=== PATIENT | female | born 1965 | race African-American/Black ===

== ENCOUNTER 2019-03-13 15:24 | Inpatient (IN) | payer OTHER ==
[2019-03-13 16:55] VITALS: BMI 35.6
--- NOTE | 2019-03-13 19:14 | HP ---
CIWA Score Nausea/Vomitin Muscle Tremors: 4-Moderate,w/Arms Extend Anxiety: 3 Agitation: 1-Slight > Activity Paroxysmal Sweats: 3 Orientation: 0-Oriented Tacttile Disturbances: 0-None Auditory Disturbances: 0-None Visual Disturbances: 0-None Headache: 3-Moderate CIWA-Ar Total Score: 16 - Admission Criteria [facility]ASAS Guidelines: Admission for Medically Managed Detox: Requires at least one of the followin. CIWA greater than 12 2. Seizures within the past 24 hours 3. Delirium tremens within the past 24 hours 4. Hallucinations within the past 24 hours 5. Acute intervention needed for co occurring medical disorder 6. Acute intervention needed for co occurring psychiatric disorder 7. Severe withdrawal that cannot be handled at a lower level of care (continued vomiting, continued diarrhea, abnormal vital signs) requiring intravenous medication and/or fluids 8. Admission ROS [facility] - [facility] Chief Complaint: Alcohol withdrawal symptoms Allergies/Adverse Reactions: Allergies Allergy/AdvReac Type Severity Reaction Status Date / Time No Known Allergies Allergy Verified 03/13/19 16:38 History of Present Illness: 53 years old female with a long history of alcohol dependence is seeking admission to detox. Patient denies previous detox experience and reports insignificant period of sobriety. She has medical history of hypertension, hyperlipidemia, neuropathy, Diabetes type 2, and GERD. She denies psych. history , suicide attempt and suicidal ideation at this time. 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 Exam Limitations: No Limitations - Ebola screening Have you traveled outside of the country in the last 21 days: No Have you had contact with anyone from an Ebola affected area: No Do you have a fever: No - Review of Systems Constitutional: Chills, Malaise, Night Sweats, Changes in sleep EENT: reports: Nose Congestion Respiratory: reports: No Symptoms reported Cardiac: reports: No Symptoms Reported GI: reports: Nausea, Poor Appetite, Poor Fluid Intake, Abdominal cramping Musculoskeletal: reports: No Symptoms Reported Integumentary: reports: Dryness, Flushing Neuro: reports: Tremors Endocrine: reports: No Symptoms Reported Hematology: reports: No Symptoms Reported Psychiatric: reports: Mood/Affect Appropiate, Orientated x3 Other Systems: Reviewed and Negative Patient History - Patient Medical History Hx Anemia: No Hx Asthma: Yes (Not on medication) Hx Chronic Obstructive Pulmonary Disease (COPD): No Hx Cancer: No Hx Cardiac Disorders: No Hx Congestive Heart Failure: No Hx Hypertension: Yes (Lisinopril) Hx Hypercholesterolemia: Yes (Lipitor) Hx Pacemaker: No HX Cerebrovascular Accident: No Hx Seizures: No Hx Diabetes: Yes Hx Gastrointestinal Disorders: Yes (GERD -) Hx Liver Disease: No Hx Genitourinary Disorders: No Hx Sexually Transmitted Disorders: No Hx Renal Disease (ESRD): No Hx Thyroid Disease: No Hx Human Immunodeficiency Virus (HIV): No (Negative 2019) Hx Hepatitis C: No Hx Depression: No Hx Suicide Attempt: No (Denies suicide attempt/ suicidal ideation at this time) Hx Bipolar Disorder: No Hx Schizophrenia: No - Patient Surgical History Past Surgical History: Yes Hx Neurologic Surgery: No Hx Cataract Extraction: No Hx Cardiac Surgery: No Hx Lung Surgery: No Hx Breast Surgery: No Hx Breast Biopsy: No Hx Abdominal Surgery: No Hx Appendectomy: No Hx Cholecystectomy: No Hx Genitourinary Surgery: No Hx Section: Yes (2006) Hx Orthopedic Surgery: No Hx Hysterectomy: No Anesthesia Reaction: No - PPD History Previous Implant?: Yes Documented Results: Negative w/o proof Implanted On Prior [facility] Admission?: No PPD to be Administered?: Yes - Reproductive History Patient is a Female of Child Bearing Age (11 -55 yrs old): Yes LMP comment: Menopausal - Smoking Cessation Smoking history: Former smoker Have you smoked in the past 12 months: No Hx Chewing Tobacco Use: No Initiated information on smoking cessation: No - Substance & Tx. History Hx Alcohol Use: Yes Hx Substance Use: Yes Substance Use Type: Alcohol, Cocaine Hx Substance Use Treatment: Yes ([facility]) - Substances abused Alcohol Substance route: Oral Frequency: Daily Amount used: 2 pints vodka Age of first use: 12 Date of last use: 03/13/19 Crack Substance route: Inhalation Frequency: Daily Amount used: $500 Age of first use: 15 Date of last use: 03/12/19 Admission Physical Exam [facility] - Vital Signs Vital Signs: Vital Signs - 24 hr 03/13/19 03/13/19 16:37 17:15 Temperature 97.7 F 97.7 F Pulse Rate 105 H 105 H Respiratory 16 16 Rate Blood Pressure 144/98 144/98 - Physical General Appearance: Yes: Moderate Distress, Tremorous, Sweating, Anxious HEENTM: Yes: Within Normal Limits, Normal ENT Inspection, Normal Voice, NHAN Respiratory: Yes: Lungs Clear, Normal Breath Sounds, No Respiratory Distress Neck: Yes: Supple Breast: Yes: Breast Exam Deferred Cardiology: Yes: Tachycardia Abdominal: Yes: Normal Bowel Sounds Genitourinary: Yes: Within Normal Limits Back: Yes: Normal Inspection Musculoskeletal: Yes: Back pain, Muscle Pain Extremities: Yes: Tremors Neurological: Yes: Within Normal Limits, Alert, Normal Mood/Affect Integumentary: Yes: Warm Lymphatic: Yes: Within Normal Limits - Diagnostic (1) Alcohol dependence with withdrawal, uncomplicated Current Visit: Yes Status: Acute (2) Type 2 diabetes mellitus Current Visit: Yes Status: Chronic Qualifiers: Diabetes mellitus [employer] insulin use: unspecified [employer] insulin use status Diabetes mellitus complication status: with other specified complication Qualified Code(s): E11.69 - Type 2 diabetes mellitus with other specified complication (3) Hypertension Current Visit: Yes Status: Chronic Qualifiers: Hypertension type: essential hypertension Qualified Code(s): I10 - Essential (primary) hypertension (4) Hyperlipidemia Current Visit: Yes Status: Chronic Qualifiers: Hyperlipidemia type: unspecified Qualified Code(s): E78.5 - Hyperlipidemia , unspecified (5) GERD (gastroesophageal reflux disease) Current Visit: Yes Status: Chronic Qualifiers: Esophagitis presence: esophagitis presence not specified Qualified Code(s) : K21.9 - Gastro-esophageal reflux disease without esophagitis (6) Asthma Current Visit: Yes Status: Chronic (7) Neuropathy Current Visit: Yes Status: Chronic Cleared for Admission S - Detox or Rehab [facility] Level of Care: Medically Managed Detox Regimen/Protocol: Librium Claeared for Rehab Admission: No Breathalyzer - Breathalyzer Breathalyzer: 0 Urine Drug Screen - Test Device Lot number: [id number] Expiration date: 01/07/21 - Control Is test valid?: Yes - Results Drug screen NEGATIVE: No Urine drug screen results: [facility]-Cocaine Inpatient Rehab Admission - Rehab Decision to Admit Inpatient rehab admission?: No
[2019-03-13] MEDS ORDERED: MAG HYDROX/AL HYDROX/SIMETH 30 ML UNIT-DOSE CUP PO PRN (19:28)
[2019-03-13] MEDS ORDERED: MELATONIN 5 MG TABLETS PO PRN (19:28)
[2019-03-13] MEDS ORDERED: ACETAMINOPHEN 325 MG TABLET (FP) PO PRN ×2 (19:28)
[2019-03-13] MEDS ORDERED: MAGNESIUM HYDROX 2400MG/30ML ORAL SUSPENSION 30 ML CUP PO PRN (19:28)
[2019-03-13] MEDS ORDERED: chlordiazePOXIDE HCL 25 MG CAPSULE PO PRN (19:28)
[2019-03-13] MEDS ORDERED: MENTHOL/PHENOL 1 EACH UD MM PRN (19:28)
[2019-03-13] MEDS ORDERED: BISMUTH SUBSALICYLATE 262 MG/15 ML BTL PO PRN (19:28)
[2019-03-13] MEDS ORDERED: METHOCARBAMOL 500 MG TABLET PO PRN (19:28)
[2019-03-13] MEDS ORDERED: IBUPROFEN 400 MG TABLET (FP) PO PRN (19:28)
[2019-03-13] MEDS ORDERED: MAGNESIUM CITRATE 300 ML BOTTLE PO PRN (19:28)
[2019-03-13] MEDS: chlordiazePOXIDE HCL 25 MG CAPSULE PO SCH (22:20)
[2019-03-13] MEDS: FAMOTIDINE 20 MG TABLET PO SCH (22:21)
[2019-03-13] MEDS: GABAPENTIN 300 MG CAPSULE PO SCH (22:21)
[2019-03-13] MEDS: THIAMINE HCL 100 MG TABLET (FP) PO SCH (22:21)
[2019-03-13] MEDS ORDERED: INSULIN (NOVOLOG) ASPART 100 UNITS/ML 10ML VIAL SQ ONE (23:51)
[2019-03-13] MEDS ORDERED: INSULIN SLIDING SCALE (NOVOLOG) 1 VIAL SQ ONE (23:58)
[2019-03-14] MEDS: chlordiazePOXIDE HCL 25 MG CAPSULE PO SCH ×3 (06:55→19:13)
[2019-03-14] MEDS: GABAPENTIN 300 MG CAPSULE PO SCH ×3 (06:56→22:30)
[2019-03-14] MEDS ORDERED: ALBUTEROL SO4 0.083% IH SOL 2.5 MG/3 ML VIAL.NEB. NEB SCH (06:58)
[2019-03-14] MEDS ORDERED: ALBUTEROL SO4 2.5/IPRATROPIUM 0.5 INH SOL 3 ML VIAL.NEB. NEB ONE ×4 (07:24→19:23)
[2019-03-14] MEDS ORDERED: guaiFENesin 200 MG/10 ML 10 ML UNIT-DOSE CUPS PO PRN (07:31)
[2019-03-14] MEDS ORDERED: INSULIN (NOVOLOG) ASPART 100 UNITS/ML 10ML VIAL SQ SCH (07:42)
--- NOTE | 2019-03-14 09:34 | PN ---
S CIWA - CIWA Score Nausea/Vomitin-Mild Nausea/No Vomiting Muscle Tremors: 2 Anxiety: 3 Agitation: 2 Paroxysmal Sweats: 2 Orientation: 0-Oriented Tacttile Disturbances: 1-Very Mild Itch/Numbness Auditory Disturbances: 0-None Visual Disturbances: 1-Very Mild Sensitivity Headache: 2-Mild CIWA-Ar Total Score: 14 BHS Progress Note (SOAP) Subjective: 53 years old female admitted on 03/13/19 for alcohol withdrawal sx management treating with librium detox regiment long history of copd and obesity with current asthma exacerbated begin prednison 60mg and joie off to 5mg while in detox diabetes with insulin coverage reports taking novolog 25 units tid ac at home due to no concentrated sugar tight controlled diet and medically supervised hold 25 units for now continue bgm achs Objective: 03/14/19 09:37 Vital Signs Temperature 98.3 F 03/14/19 09:03 Pulse Rate 108 H 03/14/19 09:03 Respiratory Rate 20 03/14/19 09:03 Blood Pressure 126/86 03/14/19 09:03 O2 Sat by Pulse Oximetry (%) Laboratory Last Values POC Glucometer 266 UNITS (80-120) 03/14/19 07:03 03/14/19 09:38 lab pending Assessment: 03/14/19 09:39 alcohol withdrawal diabetes with insulin Plan: librium regiment
[2019-03-14] MEDS ORDERED: ATORVASTATIN CA 20 MG TABLET (FP) PO SCH (10:00)
[2019-03-14] MEDS ORDERED: LISINOPRIL 5 MG TABLET (FP) PO SCH (10:00)
[2019-03-14] MEDS ORDERED: predniSONE 20 MG TABLET (UD) PO ONE (10:00)
[2019-03-14] MEDS ORDERED: PRENATAL VITAMINS W/ FOLIC ACID TABLET (FP) PO SCH (10:00)
[2019-03-14] MEDS ORDERED: ASPIRIN 81 MG CHEWABLE TABLETS PO SCH (10:00)
[2019-03-14 10:12] LABS: HEMATOCRIT 43.7 % (32.4-45.2); HEMOGLOBIN 14.6 GM/dL (10.7-15.3); MCH 31.5 pg (25.7-33.7); MCHC 33.4 g/dl (32.0-36.0); MEAN CELL VOLUME 94.5 fl (80-96); MEAN PLT VOLUME 8.3 fl (7.5-11.1); PLATELET COUNT 275 K/MM3 (134-434); RBC 4.62 M/mm3 (3.60-5.2); RDW 14.7 % (11.6-15.6); WHITE BLOOD COUNT 9.6 K/mm3 (4.0-10.0)
[2019-03-14 10:19] LABS: ALBUMIN 3.3 g/dl (3.4-5.0); BILIRUBIN,TOTAL 0.2 mg/dL (0.2-1); BLOOD UREA NITROGEN 17.3 mg/dL (7-18); CALCIUM 8.9 mg/dL (8.5-10.1); CREATININE 0.8 mg/dL (0.55-1.3); POTASSIUM 4.4 mmol/L (3.5-5.1); TOT PROT 6.7 g/dl (6.4-8.2)
[2019-03-14] MEDS: FAMOTIDINE 20 MG TABLET PO SCH ×2 (10:25→22:00)
[2019-03-14] MEDS ORDERED: INSULIN SLIDING SCALE (NOVOLOG) 1 VIAL SQ ONE ×2 (11:42→18:00)
[2019-03-14] MEDS: INSULIN (NOVOLOG) ASPART 100 UNITS/ML 10ML VIAL SQ SCH ×3 (11:43→22:00)
--- NOTE | 2019-03-14 12:43 | EKG ---
Test Reason : Blood Pressure : / mmHG Vent. Rate : 094 BPM Atrial Rate : 094 BPM P-R Int : 122 ms QRS Dur : 078 ms QT Int : 384 ms P-R-T Axes : 063 042 046 degrees QTc Int : 480 ms NORMAL SINUS RHYTHM POSSIBLE LEFT ATRIAL ENLARGEMENT PROLONGED QT ABNORMAL ECG NO PREVIOUS ECGS AVAILABLE Confirmed by ROSALIND MIN, KENNETH ([id number]) on 03/14/2019 12:43:01 PM Referred By: CARRIE Confirmed By:KENNETH BOYER MD
[2019-03-14] MEDS: ALBUTEROL SO4 0.083% IH SOL 2.5 MG/3 ML VIAL.NEB. NEB SCH ×3 (15:56→20:07)
--- NOTE | 2019-03-14 17:02 | PN ---
[facility] Progress Note Note: nursing called for pt regarding FS 520 before dinner . P Insulin 14 units one time and recheck FS Vital Signs - 24 hr 03/13/19 03/13/19 03/14/19 17:15 22:04 00:30 Temperature 97.7 F 98.5 F Pulse Rate 105 H 100 H Respiratory 16 18 20 Rate Blood Pressure 144/98 149/100 03/14/19 03/14/19 03/14/19 03:30 05:00 09:03 Temperature 98.4 F 98.3 F Pulse Rate 98 H 108 H Respiratory 18 18 20 Rate Blood Pressure 148/79 126/86 03/14/19 12:43 Temperature 99.5 F Pulse Rate 100 H Respiratory 20 Rate Blood Pressure 104/63
--- NOTE | 2019-03-14 17:29 | PN ---
[facility] Progress Note Note: Called to evaluate pt for dyspnea, shortness of breath, wheezing. Pt states she has been feeling ill for a few days but her shortness of breath and wheezing has worsened. she states she has a hx of being intubated in the past. On exam, pt is short of breath, wheezing. O2 Sat : 90%, HR 101 Lungs: decreased lung sounds b/l, wheezes and crackles throughout Cardiac: +S1S2 no mrg, tachycardic Extremities: no edema x 1 ventolin, 1 duonebs Will send to [facility] ED for further evaluation/ mgmt . sign out given to Dr. Hutchins
[2019-03-14] MEDS ORDERED: INSULIN (NOVOLOG) ASPART 100 UNITS/ML 10ML VIAL SQ ONE (17:30)
--- NOTE | 2019-03-14 18:13 | PN ---
[facility] Progress Note Note: 53 y.o. female pt w/ asthma/ copd reports SOB , intubated x 4 in the past , minimal relief w/ nebul;izer tx . PMHX : hypertension, hyperlipidemia, neuropathy, Diabetes type 2, and GERD. Vital Signs - 24 hr 03/13/19 03/14/19 03/14/19 22:04 00:30 03:30 Temperature 98.5 F Pulse Rate 100 H Respiratory 18 20 18 Rate Blood Pressure 149/100 03/14/19 03/14/19 03/14/19 05:00 09:03 12:43 Temperature 98.4 F 98.3 F 99.5 F Pulse Rate 98 H 108 H 100 H Respiratory 18 20 20 Rate Blood Pressure 148/79 126/86 104/63 Resp : moderate distress , accessory mm use , +wheezing , decreased BS , + crackles . CV : S1 S2 + tachycardia O2 sat -difficult to obtain 2/2 artificial nails . P : pt sent to [facility] ED via EMS for further eval and tx .
[2019-03-14 18:47] VITALS: BP 138/97; PULSE 102; TEMP 98.8
[2019-03-14] MEDS: THIAMINE HCL 100 MG TABLET (FP) PO SCH (22:00)
[2019-03-14] MEDS ORDERED: chlordiazePOXIDE 5 MG CAPSULE PO SCH (23:00)
[2019-03-15] MEDS ORDERED: chlordiazePOXIDE HCL 25 MG CAPSULE PO SCH (05:00)
[2019-03-15] MEDS ORDERED: predniSONE 20 MG TABLET (UD) PO ONE (10:00)
[2019-03-15] MEDS ORDERED: chlordiazePOXIDE HCL 10 MG CAPSULE PO SCH (23:00)
[2019-03-16] MEDS ORDERED: chlordiazePOXIDE HCL 10 MG CAPSULE PO SCH (05:00)
[2019-03-16] MEDS ORDERED: predniSONE 20 MG TABLET (UD) PO ONE (10:00)
[2019-03-17] MEDS ORDERED: chlordiazePOXIDE HCL 10 MG CAPSULE PO SCH ×2 (05:00)
[2019-03-17] MEDS ORDERED: predniSONE 5 MG TABLET (UD) PO ONE (10:00)
[2019-03-18] MEDS ORDERED: chlordiazePOXIDE HCL 10 MG CAPSULE PO ONE ×2 (05:00)
== END 2019-03-14 23:55 | disposition short-term general hospital (02) | DRG 897 ==
LOC: YASAS 15:24 → Y3N 20:22
PROVIDERS: ADMIT Allergy & Immunology; ATTEND Allergy & Immunology
PROC: HZ2ZZZZ Detoxification Services for Substance Abuse Treatment (ICD-10-PCS; principal; 2019-03-13)
DX: F10.230 Alcohol dependence with withdrawal, uncomplicated (principal); I10 Essential (primary) hypertension; E78.5 Hyperlipidemia, unspecified; E11.9 Type 2 diabetes mellitus without complications; G62.9 Polyneuropathy, unspecified; J44.9 Chronic obstructive pulmonary disease, unspecified; R00.0 Tachycardia, unspecified; R06.02 Shortness of breath; R06.2 Wheezing; R06.00 Dyspnea, unspecified; Z87.891 Personal history of nicotine dependence; Z79.4 Long term (current) use of insulin
CPT/HCPCS: 36415; 80053; 82962; 85027; 86593; 87389; 93005; 93010; 94640

== ENCOUNTER 2019-03-14 18:16 | Inpatient (IN) | payer OTHER ==
[2019-03-14] MEDS ORDERED: ALBUTEROL SO4 2.5/IPRATROPIUM 0.5 INH SOL 3 ML VIAL.NEB. NEB ONE ×3 (18:44→21:09)
[2019-03-14] MEDS ORDERED: SODIUM CHLORIDE 1,000 ML IV STA (18:44)
[2019-03-14] MEDS ORDERED: methylPREDNISolone NA SUCC 125 MG/2 ML VIAL IVPB ONE (18:44)
[2019-03-14] MEDS ORDERED: methylPREDNISolone NA SUCC 125 MG/2 ML VIAL ONE (19:07)
[2019-03-14] MEDS ORDERED: MAGNESIUM 1GM/D5W - 1 GM/100 ML IVPB IVPB ONE ×2 (19:31→20:37)
--- NOTE | 2019-03-14 19:34 | PDOC ---
History of Present Illness - General Chief Complaint: Asthma Stated Complaint: DIFFICULT BREATHING Time Seen by Provider: 03/14/19 18:40 History Source: Patient Exam Limitations: No Limitations - History of Present Illness Initial Comments: Stacie De Leon is a 53 yo F w a hx of COPD, asthma, polysubstance abuse, HTN, NIDDM, GERD and HCL who presents from [facility] with respiratory distress stating she is having both an asthma exacerbation and a COPD problem. She describes recent URI symptoms which have subsided but the patient now is in respiratory distress after her illness. She states she has been intubated multiple times in the past for her asthma and has needed many ICU admissions for her asthma. She states her breathing is awful today but nowhere near as bad as it was when she needed intubation or ICU admissions. Patient denies chest pain, PCP: None LMP: Menopausal PSH: Social Hx: Uses crack, alcohol, cocaine, tobacco Allergies: NKA, NKDA Past History - Past Medical History Allergies/Adverse Reactions: Allergies Allergy/AdvReac Type Severity Reaction Status Date / Time No Known Allergies Allergy Verified 03/13/19 16:38 Home Medications: Ambulatory Orders Albuterol Sulfate Inhaler - [Ventolin HFA Inhaler -] 2 inhaler PO PRN PRN Aspirin 81 mg PO DAILY 03/13/19 Atorvastatin Calcium [Lipitor] 20 mg PO DAILY 03/13/19 Cyclobenzaprine HCl [Flexeril 10 mg] 5 mg PO DAILY 03/13/19 Famotidine [Pepcid -] 20 mg PO BID 03/13/19 Gabapentin [Neurontin] 600 mg PO TID 03/13/19 Insulin Sliding Scale [Novolog Vial Sliding Scale -] 25 units SQ TID 03/13/19 Lisinopril 5 mg PO DAILY 03/13/19 Anemia: No Asthma: Yes (Not on medication) Cancer: No Cardiac Disorders: No CVA: No COPD: No CHF: No Diabetes: Yes GI Disorders: Yes (GERD -) Disorders: No HTN: Yes (Lisinopril) Hypercholesterolemia: Yes (Lipitor) Liver Disease: No Seizures: No Thyroid Disease: No - Surgical History Abdominal Surgery: No Appendectomy: No Cardiac Surgery: No Cholecystectomy: No Lung Surgery: No Neurologic Surgery: No Orthopedic Surgery: No - Reproductive History PID: No - Psycho Social/Smoking Cessation Hx Smoking History: Former smoker Have you smoked in the past 12 months: Yes Information on smoking cessation initiated: No Hx Alcohol Use: Yes Drug/Substance Use Hx: Yes Substance Use Type: Alcohol, Cocaine Hx Substance Use Treatment: Yes ([facility]) Review of Systems - Review of Systems Able to Perform ROS?: Yes Comments:: CONSTITUTIONAL: Present: Fevers, chills Absent: no fatigue EYES: Absent: visual changes ENT: Absent: ear pain, no sore throat CARDIOVASCULAR: Absent: chest jeaneth Present: cough, SOB GI: Absent: abdominal pain, no nausea, no vomiting, no constipation, no diarrhea GENITOURINARY: Absent: dysuria, no frequency, no hematuria MUSKULOSKELETAL: Absent: back pain, no arthralgia, no myalgia SKIN: Absent: rash NEURO: Absent: headache *Physical Exam - Vital Signs Last Vital Signs Temp Pulse Resp BP Pulse Ox 98.0 F 108 H 20 137/78 98 03/14/19 18:40 03/14/19 18:40 03/14/19 18:40 03/14/19 18:40 03/14/19 18:40 - Physical Exam GENERAL: Patient looks uncomfortable. Moderate distress. HEENT: Normocephalic, atraumatic. PERRL, EOM intact. CARDIOVASCULAR: Normal S1, S2. Regular rate and rhythm. PULMONARY: There are bilateral diffuse expiratory wheezes. Right sided crackles. ABDOMEN: Soft, non-distended, non-tender. EXTREMITIES: Normal ROM in all four extremities. No gross deformities. SKIN: Warm, dry. No rash NEUROLOGICAL: No focal neurological deficits. Procedures - Bedside Ultrasound Other: IV access Remarks: Nurses failed 8 IV attempts. I placed an US guided 20 gauge IV in the left bicep ED Treatment Course - LABORATORY CBC & Chemistry Diagram: 03/14/19 21:00 03/14/19 21:07 - ADDITIONAL ORDERS Additional order review: Laboratory Results 03/14/19 18:32 POC Glucometer 462 03/14/19 18:32 POC Glucometer 462 - RADIOLOGY Radiology Studies Ordered: Category Date Time Status CHEST X-RAY PORTABLE* [RAD] Stat Radiology 03/14/19 18:45 Taken - Medications Given in the ED: ED Medications Discontinued Medications Generic Name Dose Route Start Last Admin Trade Name Freq PRN Reason Stop Dose Admin Albuterol/Ipratropium 3 amp 03/14/19 18:44 03/14/19 19:12 Duoneb - NEB 03/14/19 18:45 3 amp ONCE ONE Administration Methylprednisolone Sodium Succinate 125 mg 03/14/19 18:44 03/14/19 19:13 Solu-Medrol - IVPB 03/14/19 18:45 125 mg ONCE ONE Administration Medical Decision Making - Medical Decision Making Stacie De Leon is a 53 yo F w a hx of COPD, asthma, polysubstance abuse, HTN, NIDDM, GERD and HCL who presents from [facility] with respiratory distress stating she is having both an asthma exacerbation and a COPD problem. She describes recent URI symptoms which have subsided but the patient now is in respiratory distress after her illness. She states she has been intubated multiple times in the past for her asthma and has needed many ICU admissions for her asthma. She states her breathing is awful today but nowhere near as bad as it was when she needed intubation or ICU admissions. Vital Signs Temp Pulse Resp BP Pulse Ox 98.0 F 108 H 20 137/78 98 03/14/19 18:40 03/14/19 18:40 03/14/19 18:40 03/14/19 18:40 03/14/19 19:46 DDx IBNLT: Sepsis, copd, heart failure, Asthma, PNA Plan: Labs, Bipap, Abx, likely admit for respiratory failure EKG: NSR, QTc less than 500 CXR: possible right sided infiltrate - Covering with Abx ABG: Suggests patient is having a COPD exacerbation - Patient is now stable and doing much better on Bi-Pap - Will cover for PNA and admit to med/surg 20 Gauge IV placed by in in left bicep with US guidance Dispo: Med/Surg Discharge - Discharge Information Problems reviewed: Yes Clinical Impression/Diagnosis: Respiratory distress, COPD exacerbation Condition: Stable - Admission Yes - Follow up/Referral - Patient Discharge Instructions - Post Discharge Activity
[2019-03-14] MEDS ORDERED: MAGNESIUM SULF 50% (8.12 MEQ/2 ML-1 GM VIAL) IVPB ONE ×2 (19:36→20:00)
[2019-03-14] MEDS ORDERED: CEFTRIAXONE 1,000 MG in DEXTROSE 5%-WATER - 50 ML IVPB ONE (19:51)
[2019-03-14] MEDS ORDERED: AZITHROMYCIN IVPB 500 MG in DEXTROSE 5%-WATER - 250 ML IVPB ONE (19:52)
--- NOTE | 2019-03-14 20:22 | PDOC ---
Attending Attestation - Resident Resident Name: Milton Fowler - ED Attending Attestation I have performed the following: I have examined & evaluated the patient, The case was reviewed & discussed with the resident, I agree w/resident's findings & plan, Exceptions are as noted - HPI HPI: 03/14/19 20:21 53 F with h/o COPD/asthma, PSA, HTN, DM, GERD, presenting from [facility] with SOB. Pt states that she has had a URI recently that triggered a COPD flare. Pt was being treated with nebs at [facility], with no improvement. Pt denies any F/ C. Denies leg swelling. Has had multiple prior intubations in the past for COPD. - Physicial Exam PE: 03/14/19 20:22 "GENERAL: Awake, alert, and fully oriented, in no acute distress. HEAD: No signs of trauma EYES: PERRLA, EOMI, sclera anicteric, conjunctiva clear ENT: Auricles normal inspection, hearing grossly normal, nares patent, oropharynx clear without exudates. Moist mucosa NECK: Nontender, no stepoffs, Normal ROM, supple, no lymphadenopathy, JVD, or masses LUNGS: + diffuse wheezes HEART: Regular rate and rhythm, normal S1 and S2, no murmurs, rubs or gallops ABDOMEN: Soft, nontender, normoactive bowel sounds. No guarding, no rebound. No masses EXTREMITIES: Normal range of motion, no edema. No clubbing or cyanosis. No cords, erythema, or tenderness NEUROLOGICAL: Cranial nerves II through XII intact. 5/5 strength and sensation in all extremities, Normal speech, normal gait, normal cerebellar function SKIN: Warm, Dry, normal turgor, no rashes or lesions noted. - Critical Care Time Total Critical Care Time: 60 Critical Care Statement: The care of this patient involved high complexity decision making to prevent further life threatening deterioration of the patient 's condition and/or to evaluate & treat vital organ system(s) failure or risk of failure. - Medical Decision Making 03/14/19 20:22 53 F with COPD exacerbation. - Labs - CXR - Nebs, steroids, Mg - BiPAP PRN
[2019-03-14] MEDS ORDERED: AZITHROMYCIN IVPB 500 MG/250 ML BAG IVPB ONE (20:37)
[2019-03-14] MEDS ORDERED: CEFTRIAXONE 1 GM/50 ML BAG ONE (20:37)
[2019-03-14 20:41] LABS: ARTERIAL BLD GAS O2 SATURATION 95.7 % (95-98); ARTERIAL BLOOD GAS PCO2 64.2 mmHg (35-45); ARTERIAL BLOOD GAS PO2 90.4 mmHg (80-100); ARTERIAL BLOOD GAS pH 7.27 (7.35-7.45)
[2019-03-14 20:42] LABS: ARTERIAL BLOOD GAS BASE EXCESS 1.2 meq/l (-2-2); CARBOXYHEMOGLOBIN 1.4 % (0-2)
[2019-03-14 21:59] LABS: ALBUMIN 3.3 g/dl (3.4-5.0); ALK PHOS 113 U/L (45-117); ANION GAP 9 MMOL/L (8-16); BILIRUBIN,TOTAL 0.1 mg/dL (0.2-1); BLOOD UREA NITROGEN 23.6 mg/dL (7-18); CHLORIDE 96 mmol/L (98-107); CO2 28 mmol/L (21-32); CREATININE 1.2 mg/dL (0.55-1.3); POTASSIUM 4.3 mmol/L (3.5-5.1); SGOT/AST 11 U/L (15-37); SGPT/ALT 18 U/L (13-61); SODIUM 132 mmol/L (136-145); TOT PROT 6.9 g/dl (6.4-8.2)
[2019-03-14 22:09] LABS: BASO % 0.5 % (0-2.0); EOS % 0.3 % (0-4.5); HEMOGLOBIN 14.4 GM/dL (10.7-15.3); LYMPH % 4.9 % (8-40); MCH 31.6 pg (25.7-33.7); MCHC 33.4 g/dl (32.0-36.0); MEAN CELL VOLUME 94.7 fl (80-96); MEAN PLT VOLUME 8.3 fl (7.5-11.1); MONO % 0.5 % (3.8-10.2); NEUT % 93.8 % (42.8-82.8); PLATELET COUNT 254 K/MM3 (134-434); RBC 4.55 M/mm3 (3.60-5.2); RDW 14.6 % (11.6-15.6); WHITE BLOOD COUNT 9.5 K/mm3 (4.0-10.0)
[2019-03-14 22:09] LABS: GLUCOSE,RANDOM 494 mg/dL (74-106)
[2019-03-14 22:31] LABS: PLATELET ESTIMATE ADEQUATE
--- NOTE | 2019-03-14 22:48 | PN ---
Teaching Attending Note Name of Resident: Abdoul Arango ATTENDING PHYSICIAN STATEMENT I saw and evaluated the patient. I reviewed the resident's note and discussed the case with the resident. I agree with the resident's findings and plan as documented. SUBJECTIVE: Patient is a 53 year old woman with a PMH of COPD, Asthma, Polysubstance abuse ( crack, alcohol, cocaine), Tobacco use, HTN, NIDDM, GERD and HCL who presents from [facility] with respiratory distress stating she is having both an asthma exacerbation and a COPD problem. She describes recent URI symptoms which have subsided but the patient now is in respiratory distress after her illness. She states she has been intubated multiple times in the past for her asthma and has needed many ICU admissions for her asthma. She states her breathing is awful today but nowhere near as bad as it was when she needed intubation or ICU admissions. Patient was being treated with nebulizers at [facility], with no improvement. She denies fever, chills, nausea, vomiting, headache, abdominal pain, dysuria, frequency or diarrhea. Has vaginal itching. She is menopausal. Denies recent travels. OBJECTIVE: Alert Vital Signs Period Temp Pulse Resp BP Sys/Singh Pulse Ox Last 24 Hr 98.0 F 108 20 137/78 98-98 HEENT: No Jaundice, eye redness or discharge, PERRLA, EOMI. Normocephalic, atraumatic. External ears are normal and hearing is grossly intact. No nasal discharge. Neck: Supple, nontender. No palpable adenopathy or thyromegaly. No JVD Chest: Good effort. Wheezing. Clear to percussion. Heart: Regular. No S3, rub or murmur Abdomen: Not distended, soft, nontender and no HSM. No rebound or guarding. Normal bowel sounds. Ext: Peripheral pulses intact. No leg edema. Skin: Warm and dry. No petechiae, rash or ecchymosis. Neuro: Alert. Oriented x3. CN 2-12 grossly intact. Sensation grossly intact in all four extremities and DTR are symmetric. Psych: Appropriate mood and affect. Good insight. Home Medications Medication Instructions Recorded Albuterol Sulfate Inhaler - 2 inhaler PO PRN PRN 03/13/19 [Ventolin HFA Inhaler -] Aspirin 81 mg PO DAILY 03/13/19 Atorvastatin Calcium [Lipitor] 20 mg PO DAILY 03/13/19 Cyclobenzaprine HCl [Flexeril 10 5 mg PO DAILY 03/13/19 mg] Famotidine [Pepcid -] 20 mg PO BID 03/13/19 Gabapentin [Neurontin] 600 mg PO TID 03/13/19 Insulin Sliding Scale [Novolog 25 units SQ TID 03/13/19 Vial Sliding Scale -] Lisinopril 5 mg PO DAILY 03/13/19 Abnormal Lab Results 03/14/19 03/14/19 03/14/19 20:00 21:00 21:07 Absolute Neuts (auto) 8.9 H Neutrophils % 93.8 H Neutrophils % (Manual) 91.0 H Lymphocytes % 4.9 L Lymphocytes % (Manual) 5.0 L Monocytes % 0.5 L Monocytes % (Manual) 2 L ABG pH 7.27 L ABG pCO2 at Pt Temp 64.2 H ABG HCO3 29.1 H Sodium 132 L Chloride 96 L BUN 23.6 H Random Glucose 494 H* Total Bilirubin 0.1 L AST 11 L Albumin 3.3 L ASSESSMENT AND PLAN: 1. COPD exacerbation/Hypercapnic respiratory failure - Likely precipitated by recent URI and/or continued tobacco use and inhalation of illicit drugs. ABG in the ER showed respiratory acidosis/CO2 retention and she was placed on BiPAP. CXR shows RLL infiltrate, cardiomegaly, ?increased interstitial markings/ pulmonary vascular congestion. Flu swab is negative and UA is pending. In the ER she got Duonebs, Solumedrol, MgSO4, IV Azithromycin, Rocephin and IV NS - will continue same but replace Azithromycin with Doxycycline in view of prolonged QTc, and add symbicort. EKG shows sinus tachycardia at 108/minute, prolonged QTc and no significant ST-T wave changes. Will treat vaginal itching with miconazole cream. Monitor closely on BiPAP and intubate if she fails to improve. Get ECHO and consult Pulmonary. Will continue comprehensive care for all of patients comorbid conditions. 2. Hypoalbuminemia - Possibly due to combined effects of malnutrition and inflammation associated with comorbid chronic conditions. Will ensure adequate dietary protein intake and also consult account liaison. Urinalysis pending 3. Uncontrolled DM There is no evidence of DKA. Will give IV Regular insulin 5 units stat and continue IV NS and monitor and replce K+. Will hold the home diabetes drugs and implement sliding scale insulin regimen. Provide comprehensive diabetes care with patient teaching and counseling about the importance of adherence to prescribed diabetes regimen, euglycemia, eye care and foot care. 4. Tobacco Use Counseled on risks associated with tobacco use. We will provide patient all the necessary assistance to facilitate smoking cessation and prescribe Nicotine patch. 5. Obesity Counseled on the risks associated with obesity. Will provide patient all the necessary assistance, counseling and positive reinforcement to facilitate weight loss. Consult account liaison. 6. Illicit drug/Alcohol abuse - Will monitor closely for drug withdrawal. Implement [facility] alcohol withdrawal protocol and do neurochecks. Implement seizure, fall and aspiration precautions. Treat with thiamine and folic acid and monitor electrolytes (Ca,Mg,K,P). Counseled patient about abstaining from illicit drugs and alcohol. Will consult management specialist and refer to drug/alcohol detox upon discharge. 7. Hypertension - Restart suitable outpatient antihypertensive drugs when clinically appropriate. Revise regimen to ensure [id number] excellent BP control and director counseling bureau patient on the injurious effects of uncontrolled hypertension. Nonpharmacologic measures to control hypertension like weight loss , salt restriction and exercise discussed. Importance of adherence to treatment regimen and attainment of normotension emphasized. 8. DVT prophylaxis - Lovenox 40 mg SQ q 24 hours. 9. Advance directives - Full code
[2019-03-14] MEDS ORDERED: HEPARIN NA (PORCINE) 5,000 UNITS/ML 1ML VIAL SQ SCH (23:45)
[2019-03-14] MEDS ORDERED: ALBUTEROL SO4 0.083% IH SOL 2.5 MG/3 ML VIAL.NEB. NEB PRN (23:49)
--- NOTE | 2019-03-14 23:56 | HP ---
CHIEF COMPLAINT: shortness of breath PCP: none HISTORY OF PRESENT ILLNESS: Stacie De Leon is a 53 year old female with a past medical history of COPD, asthma , DM, GERD, HTN, HLD, neuropathy, polysubstance use of alcohol and cocaine, who presents from [facility] due to shortness of breath. The patient stated that she had been having a cough productive of green sputum for the last several days and endorsed wheezing and shortness of breath. She endorsed having some chest pain associated with a cough and present only when she coughs. Otherwise denied fever, chills, lightheadedness, dizziness, abdominal pain, dysuria, hematuria, frequency, urgency, hesitancy. She endorsed some vulvovaginal itching that she states she gets when she is given steroids. Also endorsed nausea. Denied sick contacts and recent travel. Of note, patient stated that she has a history of asthma and COPD exacerbations for which she has required intubation and ICU intubation in the past. ER course was notable for: (1) HR 108, 98% on BiPAP FIO2 40% (2) WBC 9.5 with left shift, Na 132 corrected 138, BUN 23.6, CRE 1.2 (last 0.8 1 day prior), GLU 494, Alb 3.3 (3) WBG 7.27, CO2 64.2, HCO3 29.1, O2 sat 95.1 Recent Travel: denies PAST MEDICAL HISTORY: as above PAST SURGICAL HISTORY: Social History: Smoking: former smoker quit 3 months prior, formerly smoked "alot" Alcohol: last drink 2 days prior, 2 pints of vodka daily for 1 week after period of abstinence Drugs: daily crack use for 1 week after long period of abstinence, smoking, denies IVDU Lives with her children. 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 Allergies No Known Allergies Allergy (Verified 03/13/19 16:38) HOME MEDICATIONS: Home Medications Medication Instructions Recorded Albuterol Sulfate Inhaler - 2 inhaler PO PRN PRN 03/13/19 [Ventolin HFA Inhaler -] Aspirin 81 mg PO DAILY 03/13/19 Atorvastatin Calcium [Lipitor] 20 mg PO DAILY 03/13/19 Cyclobenzaprine HCl [Flexeril 10 5 mg PO DAILY 03/13/19 mg] Famotidine [Pepcid -] 20 mg PO BID 03/13/19 Gabapentin [Neurontin] 600 mg PO TID 03/13/19 Insulin Sliding Scale [Novolog 25 units SQ TID 03/13/19 Vial Sliding Scale -] Lisinopril 5 mg PO DAILY 03/13/19 REVIEW OF SYSTEMS CONSTITUTIONAL: Absent: fever, chills, diaphoresis, generalized weakness, malaise, loss of appetite, weight change HEENT: nasal congestion Absent: rhinorrhea, throat pain, throat swelling, difficulty swallowing, visual changes CARDIOVASCULAR: Absent: syncope, palpitations, irregular heart rate, lightheadedness, peripheral edema RESPIRATORY: cough, shortness of breath, dyspnea with exertion, wheezing Absent: orthopnea, stridor, hemoptysis GASTROINTESTINAL: nausea Absent: abdominal pain, abdominal distension, vomiting, diarrhea, constipation, melena, hematochezia GENITOURINARY: genital pruritis Absent: dysuria, frequency, urgency, hesitancy, hematuria, flank pain MUSCULOSKELETAL: Absent: myalgia, arthralgia, joint swelling, back pain, neck pain SKIN: Absent: rash, itching, pallor HEMATOLOGIC/IMMUNOLOGIC: Absent: easy bleeding, easy bruising, lymphadenopathy, frequent infections ENDOCRINE: Absent: unexplained weight gain, unexplained weight loss, heat intolerance, cold intolerance NEUROLOGIC: Absent: headache, focal weakness or paresthesias, dizziness, unsteady gait, seizure, mental status changes PSYCHIATRIC: Absent: anxiety, depression, suicidal or homicidal ideation, hallucinations. PHYSICAL EXAMINATION Vital Signs - 24 hr 03/14/19 03/14/19 03/14/19 18:40 19:46 19:50 Temperature 98.0 F Pulse Rate 108 H Respiratory 20 Rate Blood Pressure 137/78 O2 Sat by Pulse 98 98 98 Oximetry (%) 03/14/19 22:38 Temperature Pulse Rate Respiratory Rate Blood Pressure O2 Sat by Pulse 98 Oximetry (%) GENERAL: Awake, alert, and fully oriented, in mild acute distress. Obese. HEAD: Normal with no signs of trauma. EYES: Pupils equal, round and reactive to light, extraocular movements intact, sclera anicteric, conjunctiva clear. EARS, NOSE, THROAT: Oropharynx clear without exudates. Moist mucous membranes. NECK: Normal range of motion, supple without lymphadenopathy, JVD, or masses. LUNGS: Diffuse expiratory wheezes mainly heard in the upper lobes, decreased breath sounds in the lower lobes, mild bibasilar crackles. Using accessory muscles to breath. HEART: Tachycardic rate and regualar rhythm, normal S1 and S2 without murmur, rub. ABDOMEN: Soft, nontender, not distended, normoactive bowel sounds, no guarding, no rebound, no masses. GENITAL: Exam performed with nurse post closing specialist, no discharge, no blood, no lesions , no ulcerations, no rashes. MUSCULOSKELETAL: Normal range of motion at all joints. No bony deformities or tenderness. UPPER EXTREMITIES: 2+ pulses, warm, well-perfused. No cyanosis. No clubbing. No peripheral edema. LOWER EXTREMITIES: 2+ pulses, warm, well-perfused. No calf tenderness. No peripheral edema. NEUROLOGICAL: Cranial nerves II-XII intact. 5/5 muscle strength bilaterally upper and lower extremities. PSYCHIATRIC: Cooperative. Good eye contact. Appropriate mood and affect. SKIN: Warm, dry, normal turgor, no rashes or lesions noted, normal capillary refill. Laboratory Results - last 24 hr 03/14/19 03/14/19 03/14/19 18:32 20:00 21:00 WBC 9.5 RBC 4.55 Hgb 14.4 Hct 43.0 MCV 94.7 MCH 31.6 MCHC 33.4 RDW 14.6 Plt Count 254 MPV 8.3 Absolute Neuts (auto) 8.9 H Total Counted 100 Neutrophils % 93.8 H Neutrophils % (Manual) 91.0 H Lymphocytes % 4.9 L Lymphocytes % (Manual) 5.0 L Monocytes % 0.5 L Monocytes % (Manual) 2 L Eosinophils % 0.3 Eosinophils % (Manual) 2.0 Basophils % 0.5 Nucleated RBC % 0 Platelet Estimate Adequate Platelet Comment No clumping noted Anticoagulation Therapy No Result Required. Puncture Site No Result Required. ABG pH 7.27 L ABG pCO2 at Pt Temp 64.2 H ABG pO2 at Pt Temp 90.4 ABG HCO3 29.1 H ABG O2 Sat (Measured) 95.7 ABG O2 Content 18.2 ABG Base Excess 1.2 Roger Test No Result Required. Carboxyhemoglobin 1.4 Methemoglobin 1.0 O2 Delivery Device No Result Required. Oxygen Flow Rate No Result Required. Vent Mode No Result Required. Vent Rate No Result Required. Mechanical Rate No Result Required. Pressure Support Vent No Result Required. Sodium Potassium Chloride Carbon Dioxide Anion Gap BUN Creatinine Est GFR (CKD-EPI)AfAm Est GFR (CKD-EPI)NonAf POC Glucometer 462 Random Glucose Calcium Total Bilirubin AST ALT Alkaline Phosphatase Troponin I Total Protein Albumin Influenza A (Rapid) Influenza B (Rapid) 03/14/19 03/14/19 21:07 21:07 WBC RBC Hgb Hct MCV MCH MCHC RDW Plt Count MPV Absolute Neuts (auto) Total Counted Neutrophils % Neutrophils % (Manual) Lymphocytes % Lymphocytes % (Manual) Monocytes % Monocytes % (Manual) Eosinophils % Eosinophils % (Manual) Basophils % Nucleated RBC % Platelet Estimate Platelet Comment Anticoagulation Therapy Puncture Site ABG pH ABG pCO2 at Pt Temp ABG pO2 at Pt Temp ABG HCO3 ABG O2 Sat (Measured) ABG O2 Content ABG Base Excess Roger Test Carboxyhemoglobin Methemoglobin O2 Delivery Device Oxygen Flow Rate Vent Mode Vent Rate Mechanical Rate Pressure Support Vent Sodium 132 L Potassium 4.3 Chloride 96 L Carbon Dioxide 28 Anion Gap 9 BUN 23.6 H Creatinine 1.2 Est GFR (CKD-EPI)AfAm 59.75 Est GFR (CKD-EPI)NonAf 51.55 POC Glucometer Random Glucose 494 H* Calcium 9.0 Total Bilirubin 0.1 L AST 11 L ALT 18 Alkaline Phosphatase 113 Troponin I < 0.02 Total Protein 6.9 Albumin 3.3 L Influenza A (Rapid) Negative Influenza B (Rapid) Negative EKG--> Sinus tachycardia at 108, no ST segment changes, QTc 493 ASSESSMENT/PLAN: Stacie De Leon is a 53 year old female with a past medical history of COPD, asthma , DM, GERD, HTN, HLD, neuropathy, polysubstance use of alcohol and cocaine admitted for COPD exacerbation in the setting of likely pneumonia. Acute Hypercapneic Respiratory Failure due COPD Exacerbation - likely in setting of PNA - ABG as above - continue BIPAP and recheck ABG and adjust settings as needed - solumedrol 60mg q8h and taper as patient clinically improves - Duoneb scheduled and albuterol prn - doxycycline 100mg bid due to prolonged QTc, avoid QT prolonging agents Community Acquired Pneumonia - CXR as above - ceftriaxone 1g daily - doxycycline 100mg bid - sputum cultures - urine antigens for legionella and strep - flu negative Diabetes - uncontrolled - given 5 units IV - BGM q4h while on steroid - ISS q4h - restarted patient's home medications once reconciled - continue to monitor K while on insulin - a1c EL - likely in setting of infection - UA, urine lytes and CRE to calculate FeNA - kidney/bladder U/S Alcohol Use - CIWA 9 currently, continue to monitor - continue Librium protocol, patient stated she may refuse this medication - banana bag - MVI, folic acid, thiamine - fall, seizure precautions - addiction medicine consulted Polysubstance Use of alcohol and cocaine - CXR with congestive changes and likely fibrotic changes - evaluate with echo for cardiac pathology Vulvovaginal itching - no evidence of candidiasis, herpes infection, or other acute process - encourage patient to shower and keep area clean - continue to monitor in the setting of steroid administration and uncontrolled diabetes - if worsening itching can consider topical antifungal, patient stated she will refuse intravaginal medication Hypoalbuminemia and Obesity - unclear reason as patient does not appear malnourished - counseled on weight loss - dietary consulted HTN - resume home medications when reconciled Tobacco Abuse - states she currently does not smoke, counseled on continued smoking cessation DVT PPx - Lovenox 40mg subq daily FEN - banana bag - continue to monitor electrolytes and replete as necessary, pseudohyponatremia corrected to 138 - diabetic diet Dispo - admit to Med-surg Family Medical History Family Hx Diabetes: Mother, Sister Visit type - Emergency Visit Emergency Visit: Yes ED Registration Date: 03/14/19 Care time: The patient presented to the Emergency Department on the above date and was hospitalized for further evaluation of their emergent condition. - New Patient This patient is new to me today: Yes Date on this admission: 03/15/19 - Critical Care Critical Care patient: No
[2019-03-15] MEDS ORDERED: FLUCONAZOLE 150 MG TABLET PO ONE
[2019-03-15] MEDS ORDERED: FOLIC ACID INJECTION - 1 MG, THIAMINE HCL 100 MG, MULTIVIT INJECTION ADULT 10 ML in SOD... IVPB ONE (00:45)
[2019-03-15] MEDS: INSULIN SLIDING SCALE (NOVOLOG) 1 VIAL SQ SCH ×6 (01:00→20:12)
[2019-03-15 01:22] LABS: ALLENS TEST POSITIVE
[2019-03-15 01:26] LABS: ARTERIAL BLOOD GAS BASE EXCESS -1.4 meq/l (-2-2); ARTERIAL BLOOD GAS PCO2 54.9 mmHg (35-45); ARTERIAL BLOOD GAS PO2 184 mmHg (80-100); ARTERIAL BLOOD GAS pH 7.29 (7.35-7.45)
[2019-03-15] MEDS ORDERED: INSULIN REGULAR HUMAN 100 UNITS/ML *VIAL IVPUSH ONE (01:45)
[2019-03-15] MEDS: methylPREDNISolone NA SUCC 40 MG/1 ML VIAL IVPUSH SCH ×3 (03:23→18:56)
[2019-03-15 03:32] VITALS: BMI 33.9
[2019-03-15] MEDS: GABAPENTIN 300 MG CAPSULE PO SCH ×3 (05:46→21:24)
[2019-03-15] MEDS: chlordiazePOXIDE HCL 25 MG CAPSULE PO SCH ×2 (05:46→13:16)
[2019-03-15] MEDS ORDERED: PATIENT'S OWN MEDICATION (NON-FORMULARY) (Gabapentin [Neurontin] 600 MG) PO SCH (06:00)
[2019-03-15 06:58] LABS: ARTERIAL BLD GAS O2 SATURATION 95.4 % (95-98); ARTERIAL BLOOD GAS PCO2 51.4 mmHg (35-45); ARTERIAL BLOOD GAS pH 7.35 (7.35-7.45)
[2019-03-15] MEDS ORDERED: INSULIN SLIDING SCALE (NOVOLOG) 1 VIAL SQ SCH (07:00)
[2019-03-15 07:03] LABS: ALLENS TEST POSITIVE
[2019-03-15] MEDS: ALBUTEROL SO4 2.5/IPRATROPIUM 0.5 INH SOL 3 ML VIAL.NEB. NEB SCH ×4 (07:47→19:30)
[2019-03-15] MEDS ORDERED: INSULIN (NOVOLOG) ASPART 100 UNITS/ML 10ML VIAL ONE ×2 (07:49→20:10)
[2019-03-15] MEDS ORDERED: DEXTROSE 5%-WATER 100 ML IVPB ONE ×2 (08:26→21:19)
[2019-03-15] MEDS ORDERED: DOXYCYCLINE HYCLATE 100 MG VIAL ONE ×2 (08:26→21:19)
[2019-03-15] MEDS ORDERED: DEXTROSE 5%-WATER - 50 ML IVPB ONE (08:27)
[2019-03-15] MEDS ORDERED: cefTRIAXone SODIUM 1 GM VIAL ONE (08:27)
[2019-03-15 08:33] LABS: BASO % 0.2 % (0-2.0); HEMATOCRIT 39.2 % (32.4-45.2); HEMOGLOBIN 13.1 GM/dL (10.7-15.3); LYMPH % 8.3 % (8-40); MCH 31.3 pg (25.7-33.7); MCHC 33.3 g/dl (32.0-36.0); MEAN CELL VOLUME 93.9 fl (80-96); MEAN PLT VOLUME 8.2 fl (7.5-11.1); MONO % 2.1 % (3.8-10.2); NEUT % 89.4 % (42.8-82.8); PLATELET COUNT 254 K/MM3 (134-434); RBC 4.18 M/mm3 (3.60-5.2); RDW 14.9 % (11.6-15.6); WHITE BLOOD COUNT 11.5 K/mm3 (4.0-10.0)
[2019-03-15] MEDS: MULTIVITAMINS (DAILY MVI) TABLET (FP) PO SCH ×2 (08:40→09:47)
[2019-03-15] MEDS: ENOXAPARIN NA (PORCINE) 40 MG/0.4 ML DISP.SYRIN SQ SCH ×2 (08:41→09:47)
[2019-03-15] MEDS: CEFTRIAXONE 1 GM in DEXTROSE 5%-WATER - 50 ML IVPB SCH ×2 (08:41→09:47)
[2019-03-15] MEDS: FOLIC ACID 1 MG TABLET (FP) PO SCH ×2 (08:41→09:47)
[2019-03-15] MEDS: THIAMINE HCL 100 MG TABLET (FP) PO SCH ×2 (08:41→09:47)
[2019-03-15 08:52] LABS: POTASSIUM 4.6 mmol/L (3.5-5.1)
[2019-03-15 09:55] LABS: ANION GAP 8 MMOL/L (8-16); BLOOD UREA NITROGEN 26.1 mg/dL (7-18); CALCIUM 8.9 mg/dL (8.5-10.1); CHLORIDE 102 mmol/L (98-107); CO2 26 mmol/L (21-32); CREATININE 0.8 mg/dL (0.55-1.3); GLUCOSE,RANDOM 248 mg/dL (74-106); MAGNESIUM 2.3 mg/dL (1.8-2.4); PHOSPHOROUS 2.3 mg/dL (2.5-4.9); POTASSIUM 4.6 mmol/L (3.5-5.1); SODIUM 135 mmol/L (136-145)
[2019-03-15] MEDS: DOXYCYCLINE INJECTION 100 MG in DEXTROSE 5%-WATER 100 ML IVPB SCH ×2 (09:56→21:24)
[2019-03-15 10:55] LABS: PH,URINE 5.5 (5.0-8.0); URINE APPEARANCE CLEAR; URINE BILIRUBIN NEGATIVE (NEGATIVE); URINE COLOR YELLOW; URINE GLUCOSE (UA) 3+ (NEGATIVE); URINE KETONE TRACE (NEGATIVE); URINE LEUK ESTERASE NEGATIVE (NEGATIVE); URINE NITRITE NEGATIVE (NEGATIVE); URINE PROTEIN NEGATIVE (NEGATIVE); URINE UROBILINOGEN 0.2 mg/dL (0.2-1.0)
[2019-03-15 11:13] LABS: COCAINE, UR NEGATIVE ng/ml (CUTOFF=300); METHADONE, UR NEGATIVE ng/ml (CUTOFF=300); OPIATES, URI NEGATIVE ng/ml (CUTOFF=300); PHENCYCLIDINE,URINE NEGATIVE ng/ml (CUTOFF=25); URINE AMPHETAMINES NEGATIVE ng/ml (CUTOFF=500); URINE BARBITURATES NEGATIVE ng/ml (CUTOFF=200)
[2019-03-15 12:17] LABS: URINE BENZODIAZEPINES POSITIVE ng/ml (CUTOFF=200)
--- NOTE | 2019-03-15 12:42 | ECHO ---
Name: MANDO AGUILLON Exam:Adult Echocardiogram Study Date: 03/15/2019 11:04 AM Age: 53 yrs Height: 65 in Weight: 200 lb BSA: 2.0 m2 MMode/2D Measurements & Calculations IVSd: 0.82 cm Ao root diam: 3.2 cm LVIDd: 4.5 cm LA dimension: 3.1 cm LVIDs: 2.8 cm ACS: 1.8 cm LVPWd: 0.75 cm IVSs: 1.5 cm LVPWs: 1.3 cm EDV(Teich): 93.0 ml ESV(Teich): 30.3 ml Doppler Measurements & Calculations MV E max seven: 102.8 cm/sec Ao V2 max: 135.7 cm/sec MV A max seven: 106.2 cm/sec Ao max P.4 mmHg MV E/A: 0.97 Ao V2 mean: 92.3 cm/sec Ao mean P.8 mmHg Ao V2 VTI: 26.6 cm Med Peak E' Seven: 5.3 cm/sec Med E/e': 19.5 Lat Peak E' Seven: 7.6 cm/sec Lat E/e': 13.6 Left Ventricle Left ventricular systolic function is normal. The transmitral spectral Doppler flow pattern is sugges tive of impaired LV relaxation. Right Ventricle The right ventricle is normal in size and function. Atria Normal left and right atrial size and function. Mitral Valve The mitral valve is grossly normal. There is no mitral valve stenosis. There is trace mitral regurgit ation. Tricuspid Valve The tricuspid valve is normal in structure and function. Aortic Valve The aortic valve opens well. No hemodynamically significant valvular aortic stenosis. No aortic regur gitation is present. Pulmonic Valve The pulmonic valve is not well seen, but is grossly normal. There is no pulmonic valvular stenosis. T here is no pulmonic valvular regurgitation. Great Vessels The aortic root is normal size. Pericardium/Pleura There is no pericardial effusion. Interpretation Summary Left ventricular systolic function is normal. The transmitral spectral Doppler flow pattern is suggestive of impaired LV relaxation. The right ventricle is normal in size and function. There is trace mitral regurgitation. There is no pericardial effusion. MD Taylor *Flynn 03/15/2019 12:41 PM
--- NOTE | 2019-03-15 15:13 | EKG ---
Test Reason : Blood Pressure : / mmHG Vent. Rate : 108 BPM Atrial Rate : 108 BPM P-R Int : 124 ms QRS Dur : 090 ms QT Int : 368 ms P-R-T Axes : 053 028 041 degrees QTc Int : 493 ms SINUS TACHYCARDIA NONSPECIFIC INTRAVENTRICULAR CONDUCTION DEFECT PROLONGED QT WHEN COMPARED WITH ECG OF 13-MAR-2019 20:12, NO SIGNIFICANT CHANGE WAS FOUND Confirmed by MAGO DORMAN MD ([id number]) on 03/15/2019 3:13:06 PM Referred By: Confirmed By:MAGO DORMAN MD
--- NOTE | 2019-03-15 15:33 | CON.PULM ---
Consult Consult Specialty:: PULMONARY Referred by:: BUD Reason for Consultation:: COUGH/WHEEZE - History of Present Illness Chief Complaint: COUGH/WHEEZE History of Present Illness: 53 yo F w a hx of COPD, asthma, polysubstance abuse, HTN, NIDDM, GERD who presents from [facility] with respiratory distress stating she is having both an asthma exacerbation and a COPD problem. She describes recent URI symptoms which have subsided but the patient now is in respiratory distress after her illness. She states she has been intubated multiple times in the past for her asthma and has needed many ICU admissions for her asthma. She states her breathing is awful today but nowhere near as bad as it was when she needed intubation or ICU admissions. - History Source History Provided By: Patient, Medical Record Limitations to Obtaining History: No Limitations - Past Medical History FINANCIAL ADVISOR: No: Alzheimer's Cardio/Vascular: No: AFIB Pulmonary: Yes: Asthma, COPD Gastrointestinal: No: Ascites Renal/: No: Renal Failure ...: No Heme/Onc: No: Anemia Psych: Yes: Addictions - Alcohol/Substance Use Hx Alcohol Use: Yes History of Substance Use: reports: Cocaine - Smoking History Smoking history: Smoker current status UNK Have you smoked in the past 12 months: Yes - Social History ADL: Independent Place of : [facility] History of Recent Travel: No Home Medications - Allergies Allergies/Adverse Reactions: Allergies Allergy/AdvReac Type Severity Reaction Status Date / Time No Known Allergies Allergy Verified 03/13/19 16:38 - Home Medications Home Medications: Ambulatory Orders Albuterol Sulfate Inhaler - [Ventolin HFA Inhaler -] 2 puff PO PRN PRN 03/13/19 Aspirin 81 mg PO DAILY 03/13/19 Atorvastatin Calcium [Lipitor] 20 mg PO DAILY 03/13/19 Cyclobenzaprine HCl [Flexeril 10 mg] 5 mg PO DAILY 03/13/19 Famotidine [Pepcid -] 20 mg PO DAILY 03/13/19 Gabapentin [Neurontin] 600 mg PO TID 03/13/19 Insulin Sliding Scale [Novolog Vial Sliding Scale -] 25 units SQ TID 03/13/19 Lisinopril 5 mg PO DAILY 03/13/19 Blood Sugar Diagnostic [Contour Test Strip] 1 strip 03/15/19 Ipratropium 0.02% Nebulizer [Atrovent 0.02% Nebulizer -] 1 neb PO BID 03/15/19 Montelukast Na [Singulair -] 1 tab PO DAILY 03/15/19 Nicotine [Nicotine Patch] 1 patch TD DAILY 03/15/19 Omeprazole 40 mg PO DAILY 03/15/19 Family Medical History Family History: Unremarkable Review of Systems - Review of Systems Constitutional: denies: Fever Eyes: denies: Blurred Vision HENT: denies: Ear Discharge Neck: denies: Lumps Cardiovascular: denies: Edema Respiratory: reports: Cough, Exercise Intolerance, SOB, SOB on Exertion, Wheezing. denies: Hemoptysis Gastrointestinal: denies: Abdominal Pain Genitourinary: reports: No Symptoms Breasts: reports: No Symptoms Reported Musculoskeletal: reports: No Symptoms Physical Exam Vital Sings: Vital Signs Temperature 98.1 F 03/15/19 14:52 Pulse Rate 102 H 03/15/19 14:52 Respiratory Rate 19 03/15/19 14:52 Blood Pressure 157/94 03/15/19 14:52 O2 Sat by Pulse Oximetry (%) 91 L 03/15/19 09:00 Constitutional: Yes: Calm Eyes: Yes: EOM Intact HENT: Yes: Normocephalic Neck: Yes: Trachea Midline Cardiovascular: Yes: S1, S2 Respiratory: Yes: Rhonchi, Wheezes Gastrointestinal: Yes: Abdomen, Obese Edema: No Labs: CBC, BMP 03/15/19 07:32 03/15/19 07:32 ABG Results ABG pH 7.35 (7.35-7.45) 03/15/19 06:50 ABG pCO2 at Pt Temp 51.4 mmHg (35-45) H 03/15/19 06:50 ABG pO2 at Pt Temp 80.0 mmHg (80-100) 03/15/19 06:50 ABG HCO3 27.9 mmol/L (22-27) H 03/15/19 06:50 ABG O2 Sat (Measured) 95.4 % (95-98) 03/15/19 06:50 ABG O2 Content 18.2 % vol 03/15/19 06:50 ABG Base Excess 2.0 meq/l (-2-2) 03/15/19 06:50 Imaging - Results Chest X-ray: Report Reviewed, Image Reviewed Problem List - Problems (1) Pneumonia Code(s): J18.9 - PNEUMONIA, UNSPECIFIED ORGANISM (2) COPD exacerbation Code(s): J44.1 - CHRONIC OBSTRUCTIVE PULMONARY DISEASE W (ACUTE) EXACERBATION (3) Asthma Code(s): J45.909 - UNSPECIFIED ASTHMA, UNCOMPLICATED (4) GERD (gastroesophageal reflux disease) Code(s): K21.9 - GASTRO-ESOPHAGEAL REFLUX DISEASE WITHOUT ESOPHAGITIS Qualifiers: Esophagitis presence: esophagitis presence not specified Qualified Code(s) : K21.9 - Gastro-esophageal reflux disease without esophagitis (5) Hypertension Code(s): I10 - ESSENTIAL (PRIMARY) HYPERTENSION Qualifiers: Hypertension type: essential hypertension Qualified Code(s): I10 - Essential (primary) hypertension (6) Type 2 diabetes mellitus Code(s): E11.9 - TYPE 2 DIABETES MELLITUS WITHOUT COMPLICATIONS Qualifiers: Diabetes mellitus snf insulin use: unspecified meterman insulin use status Diabetes mellitus complication status: with other specified complication Qualified Code(s): E11.69 - Type 2 diabetes mellitus with other specified complication Assessment/Plan O2/SYSTEMIC STEROIDS/DUONEBS/ICS/LABA/ANTIBIOTICS/SINGULAIR REST PER PRIMARY TEAM WILL FOLLOW Cierra GARCIA MD
--- NOTE | 2019-03-15 16:16 | PN ---
Teaching Attending Note Name of Resident: Tim Feliciano ATTENDING PHYSICIAN STATEMENT I saw and evaluated the patient. I reviewed the resident's note and discussed the case with the resident. I agree with the resident's findings and plan as documented. SUBJECTIVE: Still feels mildly SOB wit cough. No fever/chills. No CP/ palpitations. OBJECTIVE: Afebrile, Hemodynamically Stable. Last Vital Signs Temp Pulse Resp BP Pulse Ox 98.1 F 102 H 19 157/94 91 L on 4L 03/15/19 14:52 03/15/19 14:52 03/15/19 14:52 03/15/19 14:52 03/15/19 09:00 HEENT - Atraumatic, Normocephalic. Heart - S1, S2, RRR Lungs - decreased air entry, wheeze bilaterally Abdomen - Soft, non-tender. Bowel Sounds normal. Extremities - no calf tenderness. Laboratory Results - last 24 hr 03/14/19 03/14/19 03/14/19 10:30 10:30 10:30 WBC RBC Hgb Hct MCV MCH MCHC RDW Plt Count MPV Absolute Neuts (auto) Total Counted Neutrophils % Neutrophils % (Manual) Lymphocytes % Lymphocytes % (Manual) Monocytes % Monocytes % (Manual) Eosinophils % Eosinophils % (Manual) Basophils % Nucleated RBC % Platelet Estimate Platelet Comment Anticoagulation Therapy Puncture Site ABG pH ABG pCO2 at Pt Temp ABG pO2 at Pt Temp ABG HCO3 ABG O2 Sat (Measured) ABG O2 Content ABG Base Excess Roger Test VBG pH POC VBG pCO2 POC VBG pO2 VBG HCO3 VBG O2 Sat (Jane) VBG Base Excess Carboxyhemoglobin Methemoglobin O2 Delivery Device Oxygen Flow Rate Vent Mode Vent Rate Mechanical Rate Pressure Support Vent Sodium Potassium Chloride Carbon Dioxide Anion Gap BUN Creatinine Est GFR (CKD-EPI)AfAm Est GFR (CKD-EPI)NonAf POC Glucometer Random Glucose Hemoglobin A1c % Calcium Phosphorus Magnesium Total Bilirubin AST ALT Alkaline Phosphatase Troponin I Total Protein Albumin Vitamin B12 Serum Folate TSH Free T4 Urine Color Yellow Urine Appearance Clear Urine pH 5.5 Ur Specific [place] 1.024 Urine Protein Negative Urine Glucose (UA) 3+ H Urine Ketones Trace H Urine Blood Negative Urine Nitrite Negative Urine Bilirubin Negative Urine Urobilinogen 0.2 Ur Leukocyte Esterase Negative Ur Random Creatinine 29.0 L Opiates Screen Negative Methadone Screen Negative Barbiturate Screen Negative Phencyclidine Screen Negative Ur Amphetamines Screen Negative MDMA (Ecstasy) Screen Negative Benzodiazepines Screen Positive A* Cocaine Screen Negative U Marijuana (THC) Screen Negative Influenza A (Rapid) Influenza B (Rapid) 03/14/19 03/14/19 03/14/19 18:32 19:55 20:00 WBC RBC Hgb Hct MCV MCH MCHC RDW Plt Count MPV Absolute Neuts (auto) Total Counted Neutrophils % Neutrophils % (Manual) Lymphocytes % Lymphocytes % (Manual) Monocytes % Monocytes % (Manual) Eosinophils % Eosinophils % (Manual) Basophils % Nucleated RBC % Platelet Estimate Platelet Comment Anticoagulation Therapy No Result Required. Puncture Site No Result Required. ABG pH 7.27 L ABG pCO2 at Pt Temp 64.2 H ABG pO2 at Pt Temp 90.4 ABG HCO3 29.1 H ABG O2 Sat (Measured) 95.7 ABG O2 Content 18.2 ABG Base Excess 1.2 Roger Test No Result Required. VBG pH Cancelled POC VBG pCO2 Cancelled POC VBG pO2 Cancelled VBG HCO3 Cancelled VBG O2 Sat (Jane) Cancelled VBG Base Excess Cancelled Carboxyhemoglobin 1.4 Methemoglobin 1.0 O2 Delivery Device No Result Required. Oxygen Flow Rate No Result Required. Vent Mode No Result Required. Vent Rate No Result Required. Mechanical Rate No Result Required. Pressure Support Vent No Result Required. Sodium Potassium Chloride Carbon Dioxide Anion Gap BUN Creatinine Est GFR (CKD-EPI)AfAm Est GFR (CKD-EPI)NonAf POC Glucometer 462 Random Glucose Hemoglobin A1c % Calcium Phosphorus Magnesium Total Bilirubin AST ALT Alkaline Phosphatase Troponin I Total Protein Albumin Vitamin B12 Serum Folate TSH Free T4 Urine Color Urine Appearance Urine pH Ur Specific [place] Urine Protein Urine Glucose (UA) Urine Ketones Urine Blood Urine Nitrite Urine Bilirubin Urine Urobilinogen Ur Leukocyte Esterase Ur Random Creatinine Opiates Screen Methadone Screen Barbiturate Screen Phencyclidine Screen Ur Amphetamines Screen MDMA (Ecstasy) Screen Benzodiazepines Screen Cocaine Screen U Marijuana (THC) Screen Influenza A (Rapid) Influenza B (Rapid) 03/14/19 03/14/19 03/14/19 21:00 21:07 21:07 WBC 9.5 RBC 4.55 Hgb 14.4 Hct 43.0 MCV 94.7 MCH 31.6 MCHC 33.4 RDW 14.6 Plt Count 254 MPV 8.3 Absolute Neuts (auto) 8.9 H Total Counted 100 Neutrophils % 93.8 H Neutrophils % (Manual) 91.0 H Lymphocytes % 4.9 L Lymphocytes % (Manual) 5.0 L Monocytes % 0.5 L Monocytes % (Manual) 2 L Eosinophils % 0.3 Eosinophils % (Manual) 2.0 Basophils % 0.5 Nucleated RBC % 0 Platelet Estimate Adequate Platelet Comment No clumping noted Anticoagulation Therapy Puncture Site ABG pH ABG pCO2 at Pt Temp ABG pO2 at Pt Temp ABG HCO3 ABG O2 Sat (Measured) ABG O2 Content ABG Base Excess Roger Test VBG pH POC VBG pCO2 POC VBG pO2 VBG HCO3 VBG O2 Sat (Jane) VBG Base Excess Carboxyhemoglobin Methemoglobin O2 Delivery Device Oxygen Flow Rate Vent Mode Vent Rate Mechanical Rate Pressure Support Vent Sodium 132 L Potassium 4.3 Chloride 96 L Carbon Dioxide 28 Anion Gap 9 BUN 23.6 H Creatinine 1.2 Est GFR (CKD-EPI)AfAm 59.75 Est GFR (CKD-EPI)NonAf 51.55 POC Glucometer Random Glucose 494 H* Hemoglobin A1c % Calcium 9.0 Phosphorus Magnesium Total Bilirubin 0.1 L AST 11 L ALT 18 Alkaline Phosphatase 113 Troponin I < 0.02 Total Protein 6.9 Albumin 3.3 L Vitamin B12 Serum Folate TSH Free T4 Urine Color Urine Appearance Urine pH Ur Specific [place] Urine Protein Urine Glucose (UA) Urine Ketones Urine Blood Urine Nitrite Urine Bilirubin Urine Urobilinogen Ur Leukocyte Esterase Ur Random Creatinine Opiates Screen Methadone Screen Barbiturate Screen Phencyclidine Screen Ur Amphetamines Screen MDMA (Ecstasy) Screen Benzodiazepines Screen Cocaine Screen U Marijuana (THC) Screen Influenza A (Rapid) Negative Influenza B (Rapid) Negative 03/15/19 03/15/19 03/15/19 01:10 03:16 06:00 WBC RBC Hgb Hct MCV MCH MCHC RDW Plt Count MPV Absolute Neuts (auto) Total Counted Neutrophils % Neutrophils % (Manual) Lymphocytes % Lymphocytes % (Manual) Monocytes % Monocytes % (Manual) Eosinophils % Eosinophils % (Manual) Basophils % Nucleated RBC % Platelet Estimate Platelet Comment Anticoagulation Therapy No Result Required. Puncture Site Left radial ABG pH 7.29 L ABG pCO2 at Pt Temp 54.9 H ABG pO2 at Pt Temp 184 H ABG HCO3 25.6 ABG O2 Sat (Measured) 99.0 H ABG O2 Content 19.2 ABG Base Excess -1.4 Roger Test Positive VBG pH POC VBG pCO2 POC VBG pO2 VBG HCO3 VBG O2 Sat (Jane) VBG Base Excess Carboxyhemoglobin Methemoglobin O2 Delivery Device Bipap Oxygen Flow Rate 40% Vent Mode S/t Vent Rate 14 Mechanical Rate Bipap Pressure Support Vent 10/5 Sodium 135 L Potassium 4.6 Chloride 102 Carbon Dioxide 26 Anion Gap 8 BUN 26.1 H Creatinine 0.8 Est GFR (CKD-EPI)AfAm 97.55 Est GFR (CKD-EPI)NonAf 84.17 POC Glucometer 504 Random Glucose 248 H Hemoglobin A1c % Calcium 8.9 Phosphorus 2.3 L Magnesium 2.3 Total Bilirubin AST ALT Alkaline Phosphatase Troponin I Total Protein Albumin Vitamin B12 Serum Folate > 100 H TSH 0.25 L Free T4 0.83 Urine Color Urine Appearance Urine pH Ur Specific [place] Urine Protein Urine Glucose (UA) Urine Ketones Urine Blood Urine Nitrite Urine Bilirubin Urine Urobilinogen Ur Leukocyte Esterase Ur Random Creatinine Opiates Screen Methadone Screen Barbiturate Screen Phencyclidine Screen Ur Amphetamines Screen MDMA (Ecstasy) Screen Benzodiazepines Screen Cocaine Screen U Marijuana (THC) Screen Influenza A (Rapid) Influenza B (Rapid) 03/15/19 03/15/19 03/15/19 06:50 07:32 07:32 WBC 11.5 H RBC 4.18 Hgb 13.1 Hct 39.2 MCV 93.9 MCH 31.3 MCHC 33.3 RDW 14.9 Plt Count 254 MPV 8.2 Absolute Neuts (auto) 10.3 H Total Counted Neutrophils % 89.4 H Neutrophils % (Manual) Lymphocytes % 8.3 D Lymphocytes % (Manual) Monocytes % 2.1 L D Monocytes % (Manual) Eosinophils % 0.0 D Eosinophils % (Manual) Basophils % 0.2 Nucleated RBC % 0 Platelet Estimate Platelet Comment Anticoagulation Therapy No Result Required. Puncture Site Right radial ABG pH 7.35 ABG pCO2 at Pt Temp 51.4 H ABG pO2 at Pt Temp 80.0 ABG HCO3 27.9 H ABG O2 Sat (Measured) 95.4 ABG O2 Content 18.2 ABG Base Excess 2.0 Roger Test Positive VBG pH POC VBG pCO2 POC VBG pO2 VBG HCO3 VBG O2 Sat (Jane) VBG Base Excess Carboxyhemoglobin Methemoglobin O2 Delivery Device N/c Oxygen Flow Rate 4l Vent Mode No Result Required. Vent Rate No Result Required. Mechanical Rate No Result Required. Pressure Support Vent No Result Required. Sodium 136 Potassium 4.6 Chloride 102 Carbon Dioxide 27 Anion Gap 7 L BUN Creatinine Est GFR (CKD-EPI)AfAm Est GFR (CKD-EPI)NonAf POC Glucometer Random Glucose Hemoglobin A1c % Calcium Phosphorus Magnesium Total Bilirubin AST ALT Alkaline Phosphatase Troponin I Total Protein Albumin Vitamin B12 Serum Folate TSH Free T4 Urine Color Urine Appearance Urine pH Ur Specific [place] Urine Protein Urine Glucose (UA) Urine Ketones Urine Blood Urine Nitrite Urine Bilirubin Urine Urobilinogen Ur Leukocyte Esterase Ur Random Creatinine Opiates Screen Methadone Screen Barbiturate Screen Phencyclidine Screen Ur Amphetamines Screen MDMA (Ecstasy) Screen Benzodiazepines Screen Cocaine Screen U Marijuana (THC) Screen Influenza A (Rapid) Influenza B (Rapid) 03/15/19 03/15/19 03/15/19 07:32 07:32 07:46 WBC RBC Hgb Hct MCV MCH MCHC RDW Plt Count MPV Absolute Neuts (auto) Total Counted Neutrophils % Neutrophils % (Manual) Lymphocytes % Lymphocytes % (Manual) Monocytes % Monocytes % (Manual) Eosinophils % Eosinophils % (Manual) Basophils % Nucleated RBC % Platelet Estimate Platelet Comment Anticoagulation Therapy Puncture Site ABG pH ABG pCO2 at Pt Temp ABG pO2 at Pt Temp ABG HCO3 ABG O2 Sat (Measured) ABG O2 Content ABG Base Excess Roger Test VBG pH POC VBG pCO2 POC VBG pO2 VBG HCO3 VBG O2 Sat (Jane) VBG Base Excess Carboxyhemoglobin Methemoglobin O2 Delivery Device Oxygen Flow Rate Vent Mode Vent Rate Mechanical Rate Pressure Support Vent Sodium Potassium Chloride Carbon Dioxide Anion Gap BUN Creatinine Est GFR (CKD-EPI)AfAm Est GFR (CKD-EPI)NonAf POC Glucometer 238 Random Glucose Hemoglobin A1c % 12.0 H Calcium Phosphorus Magnesium Total Bilirubin AST ALT Alkaline Phosphatase Troponin I Total Protein Albumin Vitamin B12 1187 H Serum Folate TSH Free T4 Urine Color Urine Appearance Urine pH Ur Specific [place] Urine Protein Urine Glucose (UA) Urine Ketones Urine Blood Urine Nitrite Urine Bilirubin Urine Urobilinogen Ur Leukocyte Esterase Ur Random Creatinine Opiates Screen Methadone Screen Barbiturate Screen Phencyclidine Screen Ur Amphetamines Screen MDMA (Ecstasy) Screen Benzodiazepines Screen Cocaine Screen U Marijuana (THC) Screen Influenza A (Rapid) Influenza B (Rapid) 03/15/19 03/15/19 11:44 15:47 WBC RBC Hgb Hct MCV MCH MCHC RDW Plt Count MPV Absolute Neuts (auto) Total Counted Neutrophils % Neutrophils % (Manual) Lymphocytes % Lymphocytes % (Manual) Monocytes % Monocytes % (Manual) Eosinophils % Eosinophils % (Manual) Basophils % Nucleated RBC % Platelet Estimate Platelet Comment Anticoagulation Therapy Puncture Site ABG pH ABG pCO2 at Pt Temp ABG pO2 at Pt Temp ABG HCO3 ABG O2 Sat (Measured) ABG O2 Content ABG Base Excess Roger Test VBG pH POC VBG pCO2 POC VBG pO2 VBG HCO3 VBG O2 Sat (Jane) VBG Base Excess Carboxyhemoglobin Methemoglobin O2 Delivery Device Oxygen Flow Rate Vent Mode Vent Rate Mechanical Rate Pressure Support Vent Sodium Potassium Chloride Carbon Dioxide Anion Gap BUN Creatinine Est GFR (CKD-EPI)AfAm Est GFR (CKD-EPI)NonAf POC Glucometer 384 421 Random Glucose Hemoglobin A1c % Calcium Phosphorus Magnesium Total Bilirubin AST ALT Alkaline Phosphatase Troponin I Total Protein Albumin Vitamin B12 Serum Folate TSH Free T4 Urine Color Urine Appearance Urine pH Ur Specific [place] Urine Protein Urine Glucose (UA) Urine Ketones Urine Blood Urine Nitrite Urine Bilirubin Urine Urobilinogen Ur Leukocyte Esterase Ur Random Creatinine Opiates Screen Methadone Screen Barbiturate Screen Phencyclidine Screen Ur Amphetamines Screen MDMA (Ecstasy) Screen Benzodiazepines Screen Cocaine Screen U Marijuana (THC) Screen Influenza A (Rapid) Influenza B (Rapid) Current Medications Generic Name Dose Route Start Last Admin Trade Name Freq PRN Reason Stop Dose Admin Albuterol Sulfate 1 amp 03/14/19 23:49 Ventolin 0.083% Nebulizer Soln - NEB Q1H PRN SHORT OF BREATH/WHEEZING Albuterol/Ipratropium 1 amp 03/15/19 08:00 03/15/19 15:57 Duoneb - NEB 1 amp RQID ARUN Administration Chlordiazepoxide HCl 10 mg 03/16/19 00:00 Librium - PO 03/16/19 23:59 Q12H PRN Signs/symptoms of Withdrawal Chlordiazepoxide HCl 25 mg 03/15/19 05:00 03/15/19 13:16 Librium - PO 03/15/19 21:01 25 mg Q8H ARUN Administration Chlordiazepoxide HCl 15 mg 03/16/19 05:00 Librium - PO 03/16/19 21:01 Q8H ARUN Chlordiazepoxide HCl 10 mg 03/17/19 05:00 Librium - PO 03/17/19 21:01 Q8H [facility] Chlordiazepoxide HCl 10 mg 03/18/19 05:00 Librium - PO 03/18/19 05:01 ONCE ONE Enoxaparin Sodium 40 mg 03/15/19 10:00 03/15/19 09:47 Lovenox - SQ Not Given DAILY [facility] Folic Acid 1 mg 03/15/19 10:00 03/15/19 09:47 Folic Acid - PO Not Given DAILY [facility] Gabapentin 600 mg 03/15/19 06:00 03/15/19 13:15 Neurontin - PO 600 mg TID [facility] Administration Ceftriaxone Sodium 1 gm/ 50 mls @ 100 mls/hr 03/15/19 10:00 03/15/19 09:47 Dextrose IVPB Not Given DAILY [facility] Protocol Doxycycline Hyclate 100 mg/ 100 mls @ 100 mls/hr 03/15/19 10:00 03/15/19 09: 56 Dextrose IVPB 100 mls/hr BID [facility] Administration Insulin Aspart 1 vial 03/14/19 23:45 03/15/19 15:54 Novolog Vial Sliding Scale - SQ 12 unit Q4H [facility] Administration Protocol Methylprednisolone Sodium Succinate 60 mg 03/15/19 03:00 03/15/19 10:52 Solu-Medrol - IVPUSH 60 mg Q8H [facility] Administration Multivitamins/Minerals/Vitamin C 1 tab 03/15/19 10:00 03/15/19 09:47 Tab-A-Vit - PO Not Given DAILY [facility] Thiamine HCl 100 mg 03/15/19 10:00 03/15/19 09:47 Vitamin B1 - PO Not Given DAILY [facility] Home Medications Medication Instructions Recorded Albuterol Sulfate Inhaler - 2 puff PO PRN PRN 03/13/19 [Ventolin HFA Inhaler -] Aspirin 81 mg PO DAILY 03/13/19 Atorvastatin Calcium [Lipitor] 20 mg PO DAILY 03/13/19 Cyclobenzaprine HCl [Flexeril 10 5 mg PO DAILY 03/13/19 mg] Famotidine [Pepcid -] 20 mg PO DAILY 03/13/19 Gabapentin [Neurontin] 600 mg PO TID 03/13/19 Insulin Sliding Scale [Novolog 25 units SQ TID 03/13/19 Vial Sliding Scale -] Lisinopril 5 mg PO DAILY 03/13/19 Blood Sugar Diagnostic [Contour 1 strip 03/15/19 Test Strip] Ipratropium 0.02% Nebulizer 1 neb PO BID 03/15/19 [Atrovent 0.02% Nebulizer -] Montelukast Na [Singulair -] 1 tab PO DAILY 03/15/19 Nicotine [Nicotine Patch] 1 patch TD DAILY 03/15/19 Omeprazole 40 mg PO DAILY 03/15/19 ASSESSMENT/PLAN 53 year old female with history of COPD, Asthma, DM 2, GERD, HTN, HLD, Peripheral Neuropathy, Polysubstance Abuse (Alcohol, cocaine), presents from [facility] with increasing SOB and productive cough. 1. Acute Hypercapneic Respiratory Failure secondary to Acute COPD Exacerbation and CAP CXR - R basal infiltrate Off BiPAP, SpO2 now 95% on RA. Continue Solumedrol, DuoNeb/Ceftriaxone/Doxycycline/O2 PRN Urine for Legionella Ag. Sputum Cx. 2. DM 2 - uncontrolled, A1c 12 Continue Levemir/Novolog sliding scale. 3. Polysubstance Abuse (cocaine, alcohol) Presented from [facility] with Acute Alcohol Withdrawal - on Day 3 Librium withdrawal protocol Received Banana Bag Continue MVI, Thiamine, Folate. 4. HTN - Continue Lisinopril. 5. HLD - Continue Statin. 6. Hypophosphatemia - repleted. 7. GERD - Continue PPI DVT Px - Lovenox SQ
[2019-03-15] MEDS ORDERED: chlordiazePOXIDE 5 MG CAPSULE PO SCH (16:28)
[2019-03-15] MEDS: PANTOPRAZOLE 40 MG TABLET PO SCH (17:25)
[2019-03-15] MEDS: INSULIN (LEVEMIR) 100 UNITS/ML UNITS SQ SCH ×2 (17:25→21:24)
--- NOTE | 2019-03-15 17:26 | PN ---
Physical Exam: SUBJECTIVE: Patient seen and examined. Patient states that she has not drank alcohol or used crack since 02/23. She states she only used it on the because she had friends visiting and was partying. She states she went to detox because she felt guilty and because she actually needed detox. She does not want to return to [facility] for detox. OBJECTIVE: Vital Signs Period Temp Pulse Resp BP Sys/Singh Pulse Ox Last 24 Hr 97.8 F-98.1 F 92-108 19-25 119-157/57-94 91-100 GENERAL: The patient is awake, alert, and fully oriented, in no acute distress. HEAD: Normal with no signs of trauma. EYES: EOMI, no ptosis ENT: MMM NECK: Trachea midline, full range of motion, supple. LUNGS: diminished breath sounds L>R, wheezing bilaterally, no accessory muscle use HEART: RRR, no murmur noted ABDOMEN: Soft, nontender, nondistended, normoactive bowel sounds, no guarding EXTREMITIES: 2+ pulses, warm, well-perfused, no edema. NEUROLOGICAL: Normal speech, normal gait, no facial droop PSYCH: Normal mood, normal affect SKIN: Warm, dry, normal turgor Laboratory Results - last 24 hr 03/14/19 03/14/19 03/14/19 10:30 10:30 10:30 WBC RBC Hgb Hct MCV MCH MCHC RDW Plt Count MPV Absolute Neuts (auto) Total Counted Neutrophils % Neutrophils % (Manual) Lymphocytes % Lymphocytes % (Manual) Monocytes % Monocytes % (Manual) Eosinophils % Eosinophils % (Manual) Basophils % Nucleated RBC % Platelet Estimate Platelet Comment Anticoagulation Therapy Puncture Site ABG pH ABG pCO2 at Pt Temp ABG pO2 at Pt Temp ABG HCO3 ABG O2 Sat (Measured) ABG O2 Content ABG Base Excess Roger Test VBG pH POC VBG pCO2 POC VBG pO2 VBG HCO3 VBG O2 Sat (Jane) VBG Base Excess Carboxyhemoglobin Methemoglobin O2 Delivery Device Oxygen Flow Rate Vent Mode Vent Rate Mechanical Rate Pressure Support Vent Sodium Potassium Chloride Carbon Dioxide Anion Gap BUN Creatinine Est GFR (CKD-EPI)AfAm Est GFR (CKD-EPI)NonAf POC Glucometer Random Glucose Hemoglobin A1c % Calcium Phosphorus Magnesium Total Bilirubin AST ALT Alkaline Phosphatase Troponin I Total Protein Albumin Vitamin B12 Serum Folate TSH Free T4 Urine Color Yellow Urine Appearance Clear Urine pH 5.5 Ur Specific [place] 1.024 Urine Protein Negative Urine Glucose (UA) 3+ H Urine Ketones Trace H Urine Blood Negative Urine Nitrite Negative Urine Bilirubin Negative Urine Urobilinogen 0.2 Ur Leukocyte Esterase Negative Ur Random Creatinine 29.0 L Opiates Screen Negative Methadone Screen Negative Barbiturate Screen Negative Phencyclidine Screen Negative Ur Amphetamines Screen Negative MDMA (Ecstasy) Screen Negative Benzodiazepines Screen Positive A* Cocaine Screen Negative U Marijuana (THC) Screen Negative Influenza A (Rapid) Influenza B (Rapid) 03/14/19 03/14/19 03/14/19 18:32 19:55 20:00 WBC RBC Hgb Hct MCV MCH MCHC RDW Plt Count MPV Absolute Neuts (auto) Total Counted Neutrophils % Neutrophils % (Manual) Lymphocytes % Lymphocytes % (Manual) Monocytes % Monocytes % (Manual) Eosinophils % Eosinophils % (Manual) Basophils % Nucleated RBC % Platelet Estimate Platelet Comment Anticoagulation Therapy No Result Required. Puncture Site No Result Required. ABG pH 7.27 L ABG pCO2 at Pt Temp 64.2 H ABG pO2 at Pt Temp 90.4 ABG HCO3 29.1 H ABG O2 Sat (Measured) 95.7 ABG O2 Content 18.2 ABG Base Excess 1.2 Roger Test No Result Required. VBG pH Cancelled POC VBG pCO2 Cancelled POC VBG pO2 Cancelled VBG HCO3 Cancelled VBG O2 Sat (Jane) Cancelled VBG Base Excess Cancelled Carboxyhemoglobin 1.4 Methemoglobin 1.0 O2 Delivery Device No Result Required. Oxygen Flow Rate No Result Required. Vent Mode No Result Required. Vent Rate No Result Required. Mechanical Rate No Result Required. Pressure Support Vent No Result Required. Sodium Potassium Chloride Carbon Dioxide Anion Gap BUN Creatinine Est GFR (CKD-EPI)AfAm Est GFR (CKD-EPI)NonAf POC Glucometer 462 Random Glucose Hemoglobin A1c % Calcium Phosphorus Magnesium Total Bilirubin AST ALT Alkaline Phosphatase Troponin I Total Protein Albumin Vitamin B12 Serum Folate TSH Free T4 Urine Color Urine Appearance Urine pH Ur Specific [place] Urine Protein Urine Glucose (UA) Urine Ketones Urine Blood Urine Nitrite Urine Bilirubin Urine Urobilinogen Ur Leukocyte Esterase Ur Random Creatinine Opiates Screen Methadone Screen Barbiturate Screen Phencyclidine Screen Ur Amphetamines Screen MDMA (Ecstasy) Screen Benzodiazepines Screen Cocaine Screen U Marijuana (THC) Screen Influenza A (Rapid) Influenza B (Rapid) 03/14/19 03/14/19 03/14/19 21:00 21:07 21:07 WBC 9.5 RBC 4.55 Hgb 14.4 Hct 43.0 MCV 94.7 MCH 31.6 MCHC 33.4 RDW 14.6 Plt Count 254 MPV 8.3 Absolute Neuts (auto) 8.9 H Total Counted 100 Neutrophils % 93.8 H Neutrophils % (Manual) 91.0 H Lymphocytes % 4.9 L Lymphocytes % (Manual) 5.0 L Monocytes % 0.5 L Monocytes % (Manual) 2 L Eosinophils % 0.3 Eosinophils % (Manual) 2.0 Basophils % 0.5 Nucleated RBC % 0 Platelet Estimate Adequate Platelet Comment No clumping noted Anticoagulation Therapy Puncture Site ABG pH ABG pCO2 at Pt Temp ABG pO2 at Pt Temp ABG HCO3 ABG O2 Sat (Measured) ABG O2 Content ABG Base Excess Roger Test VBG pH POC VBG pCO2 POC VBG pO2 VBG HCO3 VBG O2 Sat (Jane) VBG Base Excess Carboxyhemoglobin Methemoglobin O2 Delivery Device Oxygen Flow Rate Vent Mode Vent Rate Mechanical Rate Pressure Support Vent Sodium 132 L Potassium 4.3 Chloride 96 L Carbon Dioxide 28 Anion Gap 9 BUN 23.6 H Creatinine 1.2 Est GFR (CKD-EPI)AfAm 59.75 Est GFR (CKD-EPI)NonAf 51.55 POC Glucometer Random Glucose 494 H* Hemoglobin A1c % Calcium 9.0 Phosphorus Magnesium Total Bilirubin 0.1 L AST 11 L ALT 18 Alkaline Phosphatase 113 Troponin I < 0.02 Total Protein 6.9 Albumin 3.3 L Vitamin B12 Serum Folate TSH Free T4 Urine Color Urine Appearance Urine pH Ur Specific [place] Urine Protein Urine Glucose (UA) Urine Ketones Urine Blood Urine Nitrite Urine Bilirubin Urine Urobilinogen Ur Leukocyte Esterase Ur Random Creatinine Opiates Screen Methadone Screen Barbiturate Screen Phencyclidine Screen Ur Amphetamines Screen MDMA (Ecstasy) Screen Benzodiazepines Screen Cocaine Screen U Marijuana (THC) Screen Influenza A (Rapid) Negative Influenza B (Rapid) Negative 03/15/19 03/15/19 03/15/19 01:10 03:16 06:00 WBC RBC Hgb Hct MCV MCH MCHC RDW Plt Count MPV Absolute Neuts (auto) Total Counted Neutrophils % Neutrophils % (Manual) Lymphocytes % Lymphocytes % (Manual) Monocytes % Monocytes % (Manual) Eosinophils % Eosinophils % (Manual) Basophils % Nucleated RBC % Platelet Estimate Platelet Comment Anticoagulation Therapy No Result Required. Puncture Site Left radial ABG pH 7.29 L ABG pCO2 at Pt Temp 54.9 H ABG pO2 at Pt Temp 184 H ABG HCO3 25.6 ABG O2 Sat (Measured) 99.0 H ABG O2 Content 19.2 ABG Base Excess -1.4 Roger Test Positive VBG pH POC VBG pCO2 POC VBG pO2 VBG HCO3 VBG O2 Sat (Jane) VBG Base Excess Carboxyhemoglobin Methemoglobin O2 Delivery Device Bipap Oxygen Flow Rate 40% Vent Mode S/t Vent Rate 14 Mechanical Rate Bipap Pressure Support Vent 10/5 Sodium 135 L Potassium 4.6 Chloride 102 Carbon Dioxide 26 Anion Gap 8 BUN 26.1 H Creatinine 0.8 Est GFR (CKD-EPI)AfAm 97.55 Est GFR (CKD-EPI)NonAf 84.17 POC Glucometer 504 Random Glucose 248 H Hemoglobin A1c % Calcium 8.9 Phosphorus 2.3 L Magnesium 2.3 Total Bilirubin AST ALT Alkaline Phosphatase Troponin I Total Protein Albumin Vitamin B12 Serum Folate > 100 H TSH 0.25 L Free T4 0.83 Urine Color Urine Appearance Urine pH Ur Specific [place] Urine Protein Urine Glucose (UA) Urine Ketones Urine Blood Urine Nitrite Urine Bilirubin Urine Urobilinogen Ur Leukocyte Esterase Ur Random Creatinine Opiates Screen Methadone Screen Barbiturate Screen Phencyclidine Screen Ur Amphetamines Screen MDMA (Ecstasy) Screen Benzodiazepines Screen Cocaine Screen U Marijuana (THC) Screen Influenza A (Rapid) Influenza B (Rapid) 03/15/19 03/15/19 03/15/19 06:50 07:32 07:32 WBC 11.5 H RBC 4.18 Hgb 13.1 Hct 39.2 MCV 93.9 MCH 31.3 MCHC 33.3 RDW 14.9 Plt Count 254 MPV 8.2 Absolute Neuts (auto) 10.3 H Total Counted Neutrophils % 89.4 H Neutrophils % (Manual) Lymphocytes % 8.3 D Lymphocytes % (Manual) Monocytes % 2.1 L D Monocytes % (Manual) Eosinophils % 0.0 D Eosinophils % (Manual) Basophils % 0.2 Nucleated RBC % 0 Platelet Estimate Platelet Comment Anticoagulation Therapy No Result Required. Puncture Site Right radial ABG pH 7.35 ABG pCO2 at Pt Temp 51.4 H ABG pO2 at Pt Temp 80.0 ABG HCO3 27.9 H ABG O2 Sat (Measured) 95.4 ABG O2 Content 18.2 ABG Base Excess 2.0 Roger Test Positive VBG pH POC VBG pCO2 POC VBG pO2 VBG HCO3 VBG O2 Sat (Jane) VBG Base Excess Carboxyhemoglobin Methemoglobin O2 Delivery Device N/c Oxygen Flow Rate 4l Vent Mode No Result Required. Vent Rate No Result Required. Mechanical Rate No Result Required. Pressure Support Vent No Result Required. Sodium 136 Potassium 4.6 Chloride 102 Carbon Dioxide 27 Anion Gap 7 L BUN Creatinine Est GFR (CKD-EPI)AfAm Est GFR (CKD-EPI)NonAf POC Glucometer Random Glucose Hemoglobin A1c % Calcium Phosphorus Magnesium Total Bilirubin AST ALT Alkaline Phosphatase Troponin I Total Protein Albumin Vitamin B12 Serum Folate TSH Free T4 Urine Color Urine Appearance Urine pH Ur Specific [place] Urine Protein Urine Glucose (UA) Urine Ketones Urine Blood Urine Nitrite Urine Bilirubin Urine Urobilinogen Ur Leukocyte Esterase Ur Random Creatinine Opiates Screen Methadone Screen Barbiturate Screen Phencyclidine Screen Ur Amphetamines Screen MDMA (Ecstasy) Screen Benzodiazepines Screen Cocaine Screen U Marijuana (THC) Screen Influenza A (Rapid) Influenza B (Rapid) 03/15/19 03/15/19 03/15/19 07:32 07:32 07:46 WBC RBC Hgb Hct MCV MCH MCHC RDW Plt Count MPV Absolute Neuts (auto) Total Counted Neutrophils % Neutrophils % (Manual) Lymphocytes % Lymphocytes % (Manual) Monocytes % Monocytes % (Manual) Eosinophils % Eosinophils % (Manual) Basophils % Nucleated RBC % Platelet Estimate Platelet Comment Anticoagulation Therapy Puncture Site ABG pH ABG pCO2 at Pt Temp ABG pO2 at Pt Temp ABG HCO3 ABG O2 Sat (Measured) ABG O2 Content ABG Base Excess Roger Test VBG pH POC VBG pCO2 POC VBG pO2 VBG HCO3 VBG O2 Sat (Jane) VBG Base Excess Carboxyhemoglobin Methemoglobin O2 Delivery Device Oxygen Flow Rate Vent Mode Vent Rate Mechanical Rate Pressure Support Vent Sodium Potassium Chloride Carbon Dioxide Anion Gap BUN Creatinine Est GFR (CKD-EPI)AfAm Est GFR (CKD-EPI)NonAf POC Glucometer 238 Random Glucose Hemoglobin A1c % 12.0 H Calcium Phosphorus Magnesium Total Bilirubin AST ALT Alkaline Phosphatase Troponin I Total Protein Albumin Vitamin B12 1187 H Serum Folate TSH Free T4 Urine Color Urine Appearance Urine pH Ur Specific [place] Urine Protein Urine Glucose (UA) Urine Ketones Urine Blood Urine Nitrite Urine Bilirubin Urine Urobilinogen Ur Leukocyte Esterase Ur Random Creatinine Opiates Screen Methadone Screen Barbiturate Screen Phencyclidine Screen Ur Amphetamines Screen MDMA (Ecstasy) Screen Benzodiazepines Screen Cocaine Screen U Marijuana (THC) Screen Influenza A (Rapid) Influenza B (Rapid) 03/15/19 03/15/19 11:44 15:47 WBC RBC Hgb Hct MCV MCH MCHC RDW Plt Count MPV Absolute Neuts (auto) Total Counted Neutrophils % Neutrophils % (Manual) Lymphocytes % Lymphocytes % (Manual) Monocytes % Monocytes % (Manual) Eosinophils % Eosinophils % (Manual) Basophils % Nucleated RBC % Platelet Estimate Platelet Comment Anticoagulation Therapy Puncture Site ABG pH ABG pCO2 at Pt Temp ABG pO2 at Pt Temp ABG HCO3 ABG O2 Sat (Measured) ABG O2 Content ABG Base Excess Roger Test VBG pH POC VBG pCO2 POC VBG pO2 VBG HCO3 VBG O2 Sat (Jane) VBG Base Excess Carboxyhemoglobin Methemoglobin O2 Delivery Device Oxygen Flow Rate Vent Mode Vent Rate Mechanical Rate Pressure Support Vent Sodium Potassium Chloride Carbon Dioxide Anion Gap BUN Creatinine Est GFR (CKD-EPI)AfAm Est GFR (CKD-EPI)NonAf POC Glucometer 384 421 Random Glucose Hemoglobin A1c % Calcium Phosphorus Magnesium Total Bilirubin AST ALT Alkaline Phosphatase Troponin I Total Protein Albumin Vitamin B12 Serum Folate TSH Free T4 Urine Color Urine Appearance Urine pH Ur Specific [place] Urine Protein Urine Glucose (UA) Urine Ketones Urine Blood Urine Nitrite Urine Bilirubin Urine Urobilinogen Ur Leukocyte Esterase Ur Random Creatinine Opiates Screen Methadone Screen Barbiturate Screen Phencyclidine Screen Ur Amphetamines Screen MDMA (Ecstasy) Screen Benzodiazepines Screen Cocaine Screen U Marijuana (THC) Screen Influenza A (Rapid) Influenza B (Rapid) Active Medications Generic Name Dose Route Start Last Admin Trade Name Freq PRN Reason Stop Dose Admin Albuterol Sulfate 1 amp 03/14/19 23:49 Ventolin 0.083% Nebulizer Soln - NEB Q1H PRN SHORT OF BREATH/WHEEZING Albuterol/Ipratropium 1 amp 03/15/19 08:00 03/15/19 15:57 Duoneb - NEB 1 amp RQID ARUN Administration Chlordiazepoxide HCl 15 mg 03/15/19 16:28 Librium - PO 03/15/19 21:01 Q8H ARUN Chlordiazepoxide HCl 10 mg 03/16/19 05:00 Librium - PO 03/16/19 21:01 Q8H ARUN Enoxaparin Sodium 40 mg 03/15/19 10:00 03/15/19 09:47 Lovenox - SQ Not Given DAILY ARUN Folic Acid 1 mg 03/15/19 10:00 03/15/19 09:47 Folic Acid - PO Not Given DAILY ARUN Gabapentin 600 mg 03/15/19 06:00 03/15/19 13:15 Neurontin - PO 600 mg TID ARUN Administration Ceftriaxone Sodium 1 gm/ 50 mls @ 100 mls/hr 03/15/19 10:00 03/15/19 09:47 Dextrose IVPB Not Given DAILY ARUN Protocol Doxycycline Hyclate 100 mg/ 100 mls @ 100 mls/hr 03/15/19 10:00 03/15/19 09: 56 Dextrose IVPB 100 mls/hr BID ARUN Administration Insulin Aspart 1 vial 03/14/19 23:45 03/15/19 15:54 Novolog Vial Sliding Scale - SQ 12 unit Q4H ARUN Administration Protocol Methylprednisolone Sodium Succinate 60 mg 03/15/19 03:00 03/15/19 10:52 Solu-Medrol - IVPUSH 60 mg Q8H ARUN Administration Multivitamins/Minerals/Vitamin C 1 tab 03/15/19 10:00 03/15/19 09:47 Tab-A-Vit - PO Not Given DAILY [facility] Thiamine HCl 100 mg 03/15/19 10:00 03/15/19 09:47 Vitamin B1 - PO Not Given DAILY [facility] ASSESSMENT/PLAN: Stacie De Leon is a 53 year old female with a past medical history of COPD, asthma , DM, GERD, HTN, HLD, neuropathy, polysubstance use of alcohol and cocaine admitted for COPD exacerbation in the setting of likely pneumonia. #Acute Hypercapneic Respiratory Failure due COPD Exacerbation - likely in setting of PNA - BiPAP discontinued, O2 as needed to maintain SpO2 >90% - solumedrol 60mg q8h and taper as patient clinically improves - Duoneb scheduled and albuterol prn - Started on Symbicort and Singulair #Community Acquired Pneumonia - CXR showing infiltrate at right base - ceftriaxone 1g daily - doxycycline 100mg bid, due to prolonged QTc, avoid QT prolonging agents - sputum cultures ordered - urine antigens for legionella and strep - flu negative #Diabetes - uncontrolled -> A1c 12 - Started on Levemir 10 units QHS - BGM q4h while on steroid - ISS q4h - patient on 25 units novolog TID at home as per pharmacy, will hold for now in favor of ISS and levemir as above #EL - likely in setting of infection, will monitor - kidney/bladder U/S with significant abnormalities #Alcohol Use - continue Librium protocol - banana bag completed - MVI, folic acid, thiamine - fall, seizure precautions - addiction medicine consulted #Polysubstance Use of alcohol and cocaine - CXR with congestive changes and likely fibrotic changes - ECHO - no evidence of vegetations. LVEF normal. transmitral spectral doppler flow pattern is suggestive of impaired LV relaxation. #Vulvovaginal itching - no evidence of candidiasis, herpes infection, or other acute process - encourage patient to shower and keep area clean - continue to monitor in the setting of steroid administration and uncontrolled diabetes - if worsening itching can consider topical antifungal, patient stated she will refuse intravaginal medication #Hypoalbuminemia and Obesity - unclear reason as patient does not appear malnourished - counseled on weight loss - dietary consulted #HTN - Lisinopril 5mg daily home medication started #HLD - started home Atorvastatin #Tobacco Abuse - states she currently does not smoke, counseled on continued smoking cessation - can start Nicotine patch if patient requests #Prophylaxis - Lovenox 40mg subq daily - Protonix #FEN - banana bag completed - monitor electrolytes and replete as needed - diabetic diet #Dispo - D/c with clinical improvement, continue to monitor Visit type - Emergency Visit Emergency Visit: Yes ED Registration Date: 03/14/19 Care time: The patient presented to the Emergency Department on the above date and was hospitalized for further evaluation of their emergent condition. - New Patient This patient is new to me today: No - Critical Care Critical Care patient: No ATTENDING PHYSICIAN STATEMENT I saw and evaluated the patient. I reviewed the resident's note and discussed the case with the resident. I agree with the resident's findings and plan as documented. SUBJECTIVE: OBJECTIVE: ASSESSMENT AND PLAN:
[2019-03-15] MEDS ORDERED: predniSONE 20 MG TABLET (UD) PO ONE (18:51)
[2019-03-15] MEDS ORDERED: INSULIN (LEVEMIR) 100 UNITS/ML UNITS SQ ONE (20:10)
[2019-03-15] MEDS ORDERED: Insulin (LOG) Aspart 100 UNITS/ML VIAL SQ ONE (21:00)
[2019-03-15] MEDS: NAPH,MB-DB/K PH,MBDB POWDER PACKET PO SCH (21:24)
[2019-03-15] MEDS: MONTELUKAST NA 10 MG TABLET PO SCH (21:24)
[2019-03-15] MEDS: BUDESONIDE/FORMETEROL FUMARATE 160/4.5 mcg INHALER IH SCH (21:25)
[2019-03-15] MEDS ORDERED: diphenhydrAMINE HCL 25 MG CAPSULE (FP) PO PRN (23:33)
[2019-03-15] MEDS ORDERED: MELATONIN 5 MG TABLETS PO PRN (23:33)
[2019-03-16] MEDS ORDERED: chlordiazePOXIDE HCL 10 MG CAPSULE PO PRN
[2019-03-16] MEDS: INSULIN SLIDING SCALE (NOVOLOG) 1 VIAL SQ SCH ×7 (00:10→23:31)
[2019-03-16] MEDS: methylPREDNISolone NA SUCC 40 MG/1 ML VIAL IVPUSH SCH ×4 (02:01→22:23)
[2019-03-16] MEDS ORDERED: chlordiazePOXIDE 5 MG CAPSULE PO SCH (05:00)
[2019-03-16] MEDS: chlordiazePOXIDE 5 MG CAPSULE PO SCH ×3 (05:14→21:22)
[2019-03-16] MEDS: GABAPENTIN 300 MG CAPSULE PO SCH ×3 (05:15→21:21)
[2019-03-16] MEDS: ALBUTEROL SO4 2.5/IPRATROPIUM 0.5 INH SOL 3 ML VIAL.NEB. NEB SCH ×4 (07:25→21:03)
[2019-03-16] MEDS ORDERED: DEXTROSE 5%-WATER 100 ML IVPB ONE ×2 (09:57→22:19)
[2019-03-16] MEDS ORDERED: DOXYCYCLINE HYCLATE 100 MG VIAL ONE ×2 (09:57→22:19)
[2019-03-16] MEDS ORDERED: cefTRIAXone SODIUM 1 GM VIAL ONE (09:58)
[2019-03-16] MEDS ORDERED: DEXTROSE 5%-WATER - 50 ML IVPB ONE (09:58)
[2019-03-16] MEDS ORDERED: INSULIN (LEVEMIR) 100 UNITS/ML UNITS SQ ONE ×2 (10:00→10:29)
[2019-03-16] MEDS: FOLIC ACID 1 MG TABLET (FP) PO SCH (10:19)
[2019-03-16] MEDS: MULTIVITAMINS (DAILY MVI) TABLET (FP) PO SCH (10:19)
[2019-03-16] MEDS: PANTOPRAZOLE 40 MG TABLET PO SCH (10:19)
[2019-03-16] MEDS: NAPH,MB-DB/K PH,MBDB POWDER PACKET PO SCH ×2 (10:19→21:21)
[2019-03-16] MEDS: CEFTRIAXONE 1 GM in DEXTROSE 5%-WATER - 50 ML IVPB SCH (10:19)
[2019-03-16] MEDS: LISINOPRIL 5 MG TABLET (FP) PO SCH (10:19)
[2019-03-16] MEDS: ENOXAPARIN NA (PORCINE) 40 MG/0.4 ML DISP.SYRIN SQ SCH (10:20)
[2019-03-16] MEDS: THIAMINE HCL 100 MG TABLET (FP) PO SCH (10:20)
[2019-03-16] MEDS: BUDESONIDE/FORMETEROL FUMARATE 160/4.5 mcg INHALER IH SCH ×2 (10:28→21:24)
[2019-03-16] MEDS: DOXYCYCLINE INJECTION 100 MG in DEXTROSE 5%-WATER 100 ML IVPB SCH ×2 (10:33→22:23)
[2019-03-16] MEDS ORDERED: INSULIN (NOVOLOG) ASPART 100 UNITS/ML 10ML VIAL ONE ×2 (12:13→19:55)
--- NOTE | 2019-03-16 12:30 | PN ---
Teaching Attending Note Name of Resident: Jeremías Silvestre ATTENDING PHYSICIAN STATEMENT I saw and evaluated the patient. I reviewed the resident's note and discussed the case with the resident. I agree with the resident's findings and plan as documented. SUBJECTIVE: Still feels SOB with cough. No fever/chills. No CP/palpitations. OBJECTIVE: Afebrile, Hemodynamically Stable. SpO2 91% on 4L via NC Last Vital Signs Temp Pulse Resp BP Pulse Ox 97.9 F 94 H 18 128/89 91 L 03/16/19 09:00 03/16/19 09:00 03/16/19 09:00 03/16/19 09:00 03/15/19 21:00 Heart - S1, S2, RRR Lungs - decreased air entry, wheeze bilaterally Abdomen - Soft, non-tender. Bowel Sounds normal. Extremities - no calf tenderness. Laboratory Results - last 24 hr 03/15/19 03/15/19 03/15/19 15:47 16:44 19:40 POC Glucometer [phone] 03/16/19 03/16/19 03/16/19 00:05 04:08 12:11 POC Glucometer [phone] Current Medications Generic Name Dose Route Start Last Admin Trade Name Freq PRN Reason Stop Dose Admin Albuterol Sulfate 1 amp 03/14/19 23:49 Ventolin 0.083% Nebulizer Soln - NEB Q1H PRN SHORT OF BREATH/WHEEZING Albuterol/Ipratropium 1 amp 03/15/19 08:00 03/16/19 11:30 Duoneb - NEB 1 amp RQID ARUN Administration Atorvastatin Calcium 20 mg 03/16/19 22:00 Lipitor - PO HS ARUN Budesonide/Formoterol Fumarate 2 puff 03/15/19 22:00 03/16/19 10:28 Symbicort 160/4.5mcg - IH 2 puff BID ARUN Administration Chlordiazepoxide HCl 10 mg 03/16/19 05:00 03/16/19 05:14 Librium - PO 03/16/19 21:01 10 mg Q8H ARUN Administration Enoxaparin Sodium 40 mg 03/15/19 10:00 03/16/19 10:20 Lovenox - SQ 40 mg DAILY ARUN Administration Folic Acid 1 mg 03/15/19 10:00 03/16/19 10:19 Folic Acid - PO 1 mg DAILY ARUN Administration Gabapentin 600 mg 03/15/19 06:00 03/16/19 05:15 Neurontin - PO 600 mg TID ARUN Administration Ceftriaxone Sodium 1 gm/ 50 mls @ 100 mls/hr 03/15/19 10:00 03/16/19 10:19 Dextrose IVPB 100 mls/hr DAILY ARUN Administration Protocol Doxycycline Hyclate 100 mg/ 100 mls @ 100 mls/hr 03/15/19 10:00 03/16/19 10: 33 Dextrose IVPB 100 mls/hr BID ARUN Administration Insulin Aspart 1 vial 03/14/19 23:45 03/16/19 12:15 Novolog Vial Sliding Scale - SQ 12 unit Q4H ARUN Administration Protocol Insulin Detemir 20 units 03/16/19 09:49 Levemir Vial SQ HS ARUN Lisinopril 5 mg 03/16/19 10:00 03/16/19 10:19 Prinivil PO 5 mg DAILY ARUN Administration Methylprednisolone Sodium Succinate 60 mg 03/15/19 03:00 03/16/19 02:01 Solu-Medrol - IVPUSH 60 mg Q8H ARUN Administration Montelukast Sodium 10 mg 03/15/19 22:00 03/15/19 21:24 Singulair - PO 10 mg HS ARUN Administration Multivitamins/Minerals/Vitamin C 1 tab 03/15/19 10:00 03/16/19 10:19 Tab-A-Vit - PO 1 tab DAILY ARUN Administration Pantoprazole Sodium 40 mg 03/15/19 17:15 03/16/19 10:19 Protonix - PO 40 mg DAILY ARUN Administration Potassium Phos/Sodium Phos 1 packet 03/15/19 22:00 03/16/19 10:19 Phos-Nak Packet - PO 1 packet BID ARUN Administration Thiamine HCl 100 mg 03/15/19 10:00 03/16/19 10:20 Vitamin B1 - PO 100 mg DAILY ARUN Administration Home Medications Medication Instructions Recorded Albuterol Sulfate Inhaler - 2 puff PO PRN PRN 03/13/19 [Ventolin HFA Inhaler -] Aspirin 81 mg PO DAILY 03/13/19 Atorvastatin Calcium [Lipitor] 20 mg PO DAILY 03/13/19 Cyclobenzaprine HCl [Flexeril 10 5 mg PO DAILY 03/13/19 mg] Famotidine [Pepcid -] 20 mg PO DAILY 03/13/19 Gabapentin [Neurontin] 600 mg PO TID 03/13/19 Insulin Sliding Scale [Novolog 25 units SQ TID 03/13/19 Vial Sliding Scale -] Lisinopril 5 mg PO DAILY 03/13/19 Ipratropium 0.02% Nebulizer 1 neb PO BID 03/15/19 [Atrovent 0.02% Nebulizer -] Montelukast Na [Singulair -] 1 tab PO DAILY 03/15/19 Nicotine [Nicotine Patch] 1 patch TD DAILY 03/15/19 Omeprazole 40 mg PO DAILY 03/15/19 ASSESSMENT/PLAN 53 year old female with history of COPD, Asthma, DM 2, GERD, HTN, HLD, Peripheral Neuropathy, Polysubstance Abuse (Alcohol, cocaine), presents from [facility] with increasing SOB and productive cough. 1. Acute Hypercapneic Respiratory Failure secondary to Acute COPD Exacerbation and CAP CXR - R basal infiltrate Echo - normal EF, impaired relaxation. Off BiPAP, on O2 via NC. Continue Solumedrol/DuoNeb/Ceftriaxone/Doxycycline/O2 PRN Urine for Legionella Ag negative Some congestion on CXR. Will give one time Lasix 40mg IVP. Monitor respiratory status, wean off O2. 2. DM 2 - uncontrolled, A1c 12 Continue Levemir/Novolog sliding scale. Levemir dose increased to 20 units due to uncontrolled BGMs. 3. Polysubstance Abuse (cocaine, alcohol) Presented from [facility] with Acute Alcohol Withdrawal - on Day 3-4 Librium withdrawal protocol Received Banana Bag Continue MVI, Thiamine, Folate. 4. HTN - Continue Lisinopril. 5. HLD - Continue Statin. 6. GERD - Continue PPI DVT Px - Lovenox SQ
[2019-03-16] MEDS ORDERED: FUROSEMIDE 40 MG/4 ML INJECTABLE VIAL IVPUSH ONE (12:45)
--- NOTE | 2019-03-16 12:54 | PN ---
Physical Exam: SUBJECTIVE: Patient seen and examined at bedside. c/o sob and wheezing, afebrile over night. OBJECTIVE: Vital Signs Period Temp Pulse Resp BP Sys/Singh Pulse Ox Last 24 Hr 97.9 F-98.9 F 87-102 18-20 128-157/88-94 91-92 GENERAL: The patient is awake, alert, and fully oriented, in no acute distress. HEAD: Normal with no signs of trauma. EYES: EOMI, no ptosis ENT: MMM NECK: Trachea midline, full range of motion, supple. LUNGS: diminished breath sounds b/l wheezing, not on o2 no accessory muscle use HEART: RRR, no murmur noted ABDOMEN: Soft, nontender, nondistended, normoactive bowel sounds, no guarding EXTREMITIES: 2+ pulses, warm, well-perfused, no edema. NEUROLOGICAL: Normal speech, normal gait, no facial droop PSYCH: Normal mood, normal affect SKIN: Warm, dry, normal turgor Laboratory Results - last 24 hr 03/15/19 03/15/19 03/15/19 15:47 16:44 19:40 POC Glucometer [phone] 03/16/19 03/16/19 03/16/19 00:05 04:08 12:11 POC Glucometer 354 279 542 Active Medications Generic Name Dose Route Start Last Admin Trade Name Freq PRN Reason Stop Dose Admin Albuterol Sulfate 1 amp 03/14/19 23:49 Ventolin 0.083% Nebulizer Soln - NEB Q1H PRN SHORT OF BREATH/WHEEZING Albuterol/Ipratropium 1 amp 03/15/19 08:00 03/16/19 11:30 Duoneb - NEB 1 amp RQID ARUN Administration Atorvastatin Calcium 20 mg 03/16/19 22:00 Lipitor - PO HS ARUN Budesonide/Formoterol Fumarate 2 puff 03/15/19 22:00 03/16/19 10:28 Symbicort 160/4.5mcg - IH 2 puff BID ARUN Administration Chlordiazepoxide HCl 10 mg 03/16/19 05:00 03/16/19 05:14 Librium - PO 03/16/19 21:01 10 mg Q8H ARUN Administration Enoxaparin Sodium 40 mg 03/15/19 10:00 03/16/19 10:20 Lovenox - SQ 40 mg DAILY ARUN Administration Folic Acid 1 mg 03/15/19 10:00 03/16/19 10:19 Folic Acid - PO 1 mg DAILY ARUN Administration Gabapentin 600 mg 03/15/19 06:00 03/16/19 05:15 Neurontin - PO 600 mg TID ARUN Administration Ceftriaxone Sodium 1 gm/ 50 mls @ 100 mls/hr 03/15/19 10:00 03/16/19 10:19 Dextrose IVPB 100 mls/hr DAILY ARUN Administration Protocol Doxycycline Hyclate 100 mg/ 100 mls @ 100 mls/hr 03/15/19 10:00 03/16/19 10: 33 Dextrose IVPB 100 mls/hr BID ARUN Administration Insulin Aspart 1 vial 03/14/19 23:45 03/16/19 12:15 Novolog Vial Sliding Scale - SQ 12 unit Q4H ARUN Administration Protocol Insulin Detemir 20 units 03/16/19 09:49 Levemir Vial SQ HS ARUN Lisinopril 5 mg 03/16/19 10:00 03/16/19 10:19 Prinivil PO 5 mg DAILY ARUN Administration Methylprednisolone Sodium Succinate 60 mg 03/15/19 03:00 03/16/19 02:01 Solu-Medrol - IVPUSH 60 mg Q8H ARUN Administration Montelukast Sodium 10 mg 03/15/19 22:00 03/15/19 21:24 Singulair - PO 10 mg HS ARUN Administration Multivitamins/Minerals/Vitamin C 1 tab 03/15/19 10:00 03/16/19 10:19 Tab-A-Vit - PO 1 tab DAILY ARUN Administration Pantoprazole Sodium 40 mg 03/15/19 17:15 03/16/19 10:19 Protonix - PO 40 mg DAILY ARUN Administration Potassium Phos/Sodium Phos 1 packet 03/15/19 22:00 03/16/19 10:19 Phos-Nak Packet - PO 1 packet BID ARUN Administration Thiamine HCl 100 mg 03/15/19 10:00 03/16/19 10:20 Vitamin B1 - PO 100 mg DAILY ARUN Administration ASSESSMENT/PLAN: Stacie De Leon is a 53 year old female with a past medical history of COPD, asthma , DM, GERD, HTN, HLD, neuropathy, polysubstance use of alcohol and cocaine admitted for COPD exacerbation in the setting of likely pneumonia. #Acute Hypercapneic Respiratory Failure due COPD Exacerbation - likely in setting of PNA - BiPAP discontinued, O2 as needed to maintain SpO2 >90% - solumedrol 60mg q8h and taper as patient clinically improves - Duoneb scheduled and albuterol prn, - Started on Symbicort and Singulair #Community Acquired Pneumonia - CXR showing infiltrate at right base - ceftriaxone 1g daily - doxycycline 100mg bid, due to prolonged QTc, avoid QT prolonging agents - sputum cultures ordered - urine antigens for legionella and strep - flu negative #Diabetes - uncontrolled -> A1c 12 - Started on Levemir 10 units QHS - BGM q4h while on steroid - ISS q4h - patient on 25 units novolog TID at home as per pharmacy, will hold for now in favor of ISS and levemir as above #EL - likely in setting of infection, will monitor - kidney/bladder U/S with significant abnormalities #Alcohol Use - continue Librium protocol - banana bag completed - MVI, folic acid, thiamine - fall, seizure precautions - addiction medicine consulted #Polysubstance Use of alcohol and cocaine - CXR with congestive changes and likely fibrotic changes - ECHO - no evidence of vegetations. LVEF normal. transmitral spectral doppler flow pattern is suggestive of impaired LV relaxation. #Vulvovaginal itching - no evidence of candidiasis, herpes infection, or other acute process - encourage patient to shower and keep area clean - continue to monitor in the setting of steroid administration and uncontrolled diabetes - if worsening itching can consider topical antifungal, patient stated she will refuse intravaginal medication #Hypoalbuminemia and Obesity - unclear reason as patient does not appear malnourished - counseled on weight loss - dietary consulted #HTN - Lisinopril 5mg daily home medication started #HLD - started home Atorvastatin #Tobacco Abuse - states she currently does not smoke, counseled on continued smoking cessation - can start Nicotine patch if patient requests #Prophylaxis - Lovenox 40mg subq daily - Protonix Visit type - Emergency Visit Emergency Visit: Yes ED Registration Date: 03/14/19 Care time: The patient presented to the Emergency Department on the above date and was hospitalized for further evaluation of their emergent condition. - New Patient This patient is new to me today: No - Critical Care Critical Care patient: No - Discharge Referral Referred to [facility] Med P.C.: No ATTENDING PHYSICIAN STATEMENT I saw and evaluated the patient. I reviewed the resident's note and discussed the case with the resident. I agree with the resident's findings and plan as documented. SUBJECTIVE: OBJECTIVE: ASSESSMENT AND PLAN:
--- NOTE | 2019-03-16 13:18 | PN ---
Progress Note (short form) - Note Progress Note: PULMONARY States breathing is improving. Less cough and wheezing. No fevers. Vital Signs Period Temp Pulse Resp BP Sys/Singh Pulse Ox Last 24 Hr 97.9 F-98.9 F 87-102 18-20 128-157/88-94 91-92 Gen: NAD at rest Heart: RRR Lung: scattered rhonchi, wheezes Abd: soft, nontender Ext: no edema CBC, BMP 03/15/19 07:32 03/15/19 07:32 Active Medications Albuterol Sulfate (Ventolin 0.083% Nebulizer Soln -) 1 amp NEB Q1H PRN PRN Reason: SHORT OF BREATH/WHEEZING Albuterol/Ipratropium (Duoneb -) 1 amp NEB RQID [facility] Last Admin: 03/16/19 11:30 Dose: 1 amp Atorvastatin Calcium (Lipitor -) 20 mg PO HS [facility] Budesonide/Formoterol Fumarate (Symbicort 160/4.5mcg -) 2 puff IH BID [facility] Last Admin: 03/16/19 10:28 Dose: 2 puff Chlordiazepoxide HCl (Librium -) 10 mg PO Q8H [facility] Stop: 03/16/19 21:01 Last Admin: 03/16/19 13:14 Dose: 10 mg Enoxaparin Sodium (Lovenox -) 40 mg SQ DAILY [facility] Last Admin: 03/16/19 10:20 Dose: 40 mg Folic Acid (Folic Acid -) 1 mg PO DAILY [facility] Last Admin: 03/16/19 10:19 Dose: 1 mg Gabapentin (Neurontin -) 600 mg PO TID [facility] Last Admin: 03/16/19 13:14 Dose: 600 mg Ceftriaxone Sodium 1 gm/ (Dextrose) 50 mls @ 100 mls/hr IVPB DAILY [facility]; Protocol Last Admin: 03/16/19 10:19 Dose: 100 mls/hr Doxycycline Hyclate 100 mg/ (Dextrose) 100 mls @ 100 mls/hr IVPB BID [facility] Last Admin: 03/16/19 10:33 Dose: 100 mls/hr Insulin Aspart (Novolog Vial Sliding Scale -) 1 vial SQ Q4H [facility]; Protocol Last Admin: 03/16/19 12:15 Dose: 12 unit Insulin Detemir (Levemir Vial) 20 units SQ [facility] Lisinopril (Prinivil) 5 mg PO DAILY [facility] Last Admin: 03/16/19 10:19 Dose: 5 mg Methylprednisolone Sodium Succinate (Solu-Medrol -) 60 mg IVPUSH Q8H [facility] Last Admin: 03/16/19 13:13 Dose: 60 mg Montelukast Sodium (Singulair -) 10 mg PO HS [facility] Last Admin: 03/15/19 21:24 Dose: 10 mg Multivitamins/Minerals/Vitamin C (Tab-A-Vit -) 1 tab PO DAILY [facility] Last Admin: 03/16/19 10:19 Dose: 1 tab Pantoprazole Sodium (Protonix -) 40 mg PO DAILY [facility] Last Admin: 03/16/19 10:19 Dose: 40 mg Potassium Phos/Sodium Phos (Phos-Nak Packet -) 1 packet PO BID [facility] Last Admin: 03/16/19 10:19 Dose: 1 packet Thiamine HCl (Vitamin B1 -) 100 mg PO DAILY [facility] Last Admin: 03/16/19 10:20 Dose: 100 mg A/P Acute Hypercapneic Respiratory Failure Acute COPD Exacerbation r/o Pneumonia HTN DM GERD Hyperlipidemia Polysubstance Abuse - continue antibiotics - f/u cultures - can decrease medrol to 40mg q8h - inhaled bronchodilators - O2 to keep SpO2 >90% - DVT prophylaxis
[2019-03-16] MEDS ORDERED: diphenhydrAMINE HCL 25 MG CAPSULE (FP) PO PRN (13:50)
[2019-03-16 14:24] LABS: HEMATOCRIT 43.4 % (32.4-45.2); HEMOGLOBIN 14.4 GM/dL (10.7-15.3); MCH 31.4 pg (25.7-33.7); MCHC 33.2 g/dl (32.0-36.0); MEAN CELL VOLUME 94.7 fl (80-96); MEAN PLT VOLUME 8.5 fl (7.5-11.1); PLATELET COUNT 273 K/MM3 (134-434); RBC 4.58 M/mm3 (3.60-5.2); RDW 15.1 % (11.6-15.6); WHITE BLOOD COUNT 14.9 K/mm3 (4.0-10.0)
[2019-03-16 14:50] LABS: ALBUMIN 3.5 g/dl (3.4-5.0); BILIRUBIN,TOTAL 0.3 mg/dL (0.2-1); BLOOD UREA NITROGEN 32.2 mg/dL (7-18); CALCIUM 9.4 mg/dL (8.5-10.1); CREATININE 1.4 mg/dL (0.55-1.3); POTASSIUM 4.2 mmol/L (3.5-5.1); TOT PROT 7.4 g/dl (6.4-8.2)
[2019-03-16] MEDS ORDERED: SODIUM CHLORIDE 1,000 ML IV SCH (19:30)
[2019-03-16] MEDS ORDERED: Insulin (LOG) Aspart 100 UNITS/ML VIAL SQ ONE (20:00)
[2019-03-16] MEDS: ATORVASTATIN CA 20 MG TABLET (FP) PO SCH (21:22)
[2019-03-16] MEDS: MONTELUKAST NA 10 MG TABLET PO SCH (21:22)
[2019-03-16] MEDS: INSULIN (LEVEMIR) 100 UNITS/ML UNITS SQ SCH (21:23)
[2019-03-17] MEDS: methylPREDNISolone NA SUCC 40 MG/1 ML VIAL IVPUSH SCH ×3 (01:41→17:31)
[2019-03-17] MEDS: INSULIN SLIDING SCALE (NOVOLOG) 1 VIAL SQ SCH ×5 (04:22→20:05)
[2019-03-17] MEDS ORDERED: chlordiazePOXIDE HCL 10 MG CAPSULE PO SCH (05:00)
[2019-03-17] MEDS: GABAPENTIN 300 MG CAPSULE PO SCH ×3 (05:33→21:55)
[2019-03-17] MEDS: ALBUTEROL SO4 2.5/IPRATROPIUM 0.5 INH SOL 3 ML VIAL.NEB. NEB SCH ×4 (07:24→20:54)
[2019-03-17] MEDS ORDERED: INSULIN (NOVOLOG) ASPART 100 UNITS/ML 10ML VIAL ONE ×2 (10:05→20:04)
[2019-03-17] MEDS ORDERED: DOXYCYCLINE HYCLATE 100 MG VIAL ONE ×2 (10:37→21:52)
[2019-03-17] MEDS ORDERED: DEXTROSE 5%-WATER 100 ML IVPB ONE ×2 (10:38→21:53)
[2019-03-17] MEDS ORDERED: cefTRIAXone SODIUM 1 GM VIAL ONE (10:39)
[2019-03-17] MEDS ORDERED: DEXTROSE 5%-WATER - 50 ML IVPB ONE (10:39)
[2019-03-17] MEDS: LISINOPRIL 5 MG TABLET (FP) PO SCH (10:52)
[2019-03-17] MEDS: ENOXAPARIN NA (PORCINE) 40 MG/0.4 ML DISP.SYRIN SQ SCH (10:52)
[2019-03-17] MEDS: DOXYCYCLINE INJECTION 100 MG in DEXTROSE 5%-WATER 100 ML IVPB SCH ×2 (10:52→21:55)
[2019-03-17] MEDS: PANTOPRAZOLE 40 MG TABLET PO SCH (10:52)
[2019-03-17] MEDS: CEFTRIAXONE 1 GM in DEXTROSE 5%-WATER - 50 ML IVPB SCH (10:52)
[2019-03-17] MEDS: MULTIVITAMINS (DAILY MVI) TABLET (FP) PO SCH (10:52)
[2019-03-17] MEDS: FOLIC ACID 1 MG TABLET (FP) PO SCH (10:52)
[2019-03-17] MEDS: NAPH,MB-DB/K PH,MBDB POWDER PACKET PO SCH ×2 (10:52→21:55)
[2019-03-17] MEDS: THIAMINE HCL 100 MG TABLET (FP) PO SCH (10:53)
[2019-03-17] MEDS ORDERED: Insulin (LOG) Aspart 100 UNITS/ML VIAL SQ STA (11:15)
[2019-03-17] MEDS ORDERED: guaiFENesin/D-M SUGAR-FREE/ACLHOL-FREE 118 ML BOTTLE PO PRN (11:16)
[2019-03-17] MEDS ORDERED: INSULIN (LEVEMIR) 100 UNITS/ML UNITS SQ ONE (11:16)
[2019-03-17] MEDS ORDERED: INSULIN (LEVEMIR) 100 UNITS/ML UNITS SQ STA (11:16)
[2019-03-17] MEDS: BUDESONIDE/FORMETEROL FUMARATE 160/4.5 mcg INHALER IH SCH ×2 (11:32→21:56)
[2019-03-17 11:39] LABS: BLOOD UREA NITROGEN 35.3 mg/dL (7-18); CALCIUM 9.1 mg/dL (8.5-10.1); CREATININE 1.1 mg/dL (0.55-1.3); POTASSIUM 4.4 mmol/L (3.5-5.1)
--- NOTE | 2019-03-17 13:14 | PN ---
Progress Note (short form) - Note Progress Note: PULMONARY States breathing is improving. Less cough and wheezing. No fevers. Wants to go home. Vital Signs Period Temp Pulse Resp BP Sys/Singh Pulse Ox Last 24 Hr 97.7 F-98.4 F 96-106 20-20 126-147/74-99 88 Gen: NAD at rest Heart: RRR Lung: scattered rhonchi, wheezes Abd: soft, nontender Ext: no edema CBC, BMP 03/16/19 13:48 03/17/19 08:50 Active Medications Albuterol Sulfate (Ventolin 0.083% Nebulizer Soln -) 1 amp NEB Q1H PRN PRN Reason: SHORT OF BREATH/WHEEZING Albuterol/Ipratropium (Duoneb -) 1 amp NEB RQID [facility] Last Admin: 03/17/19 11:18 Dose: 1 amp Atorvastatin Calcium (Lipitor -) 20 mg PO HS [facility] Last Admin: 03/16/19 21:22 Dose: 20 mg Budesonide/Formoterol Fumarate (Symbicort 160/4.5mcg -) 2 puff IH BID [facility] Last Admin: 03/17/19 11:32 Dose: 2 puff Diphenhydramine HCl (Benadryl -) 50 mg PO HS PRN PRN Reason: INSOMNIA Enoxaparin Sodium (Lovenox -) 40 mg SQ DAILY [facility] Last Admin: 03/17/19 10:52 Dose: 40 mg Folic Acid (Folic Acid -) 1 mg PO DAILY [facility] Last Admin: 03/17/19 10:52 Dose: 1 mg Gabapentin (Neurontin -) 600 mg PO TID [facility] Last Admin: 03/17/19 13:07 Dose: 600 mg Guaifenesin (Diabetic Tussin Dm -) 5 ml PO Q6H PRN PRN Reason: COUGH Last Admin: 03/17/19 13:07 Dose: 5 ml Ceftriaxone Sodium 1 gm/ (Dextrose) 50 mls @ 100 mls/hr IVPB DAILY [facility]; Protocol Last Admin: 03/17/19 10:52 Dose: 100 mls/hr Doxycycline Hyclate 100 mg/ (Dextrose) 100 mls @ 100 mls/hr IVPB BID [facility] Last Admin: 03/17/19 10:52 Dose: 100 mls/hr Sodium Chloride (Normal Saline -) 1,000 mls @ 75 mls/hr IV ASDIR [facility] Last Admin: 03/16/19 22:22 Dose: 75 mls/hr Insulin Aspart (Novolog Vial Sliding Scale -) 1 vial SQ Q4H [facility]; Protocol Last Admin: 03/17/19 11:33 Dose: 12 unit Insulin Detemir (Levemir Vial) 20 units SQ HS [facility] Last Admin: 03/16/19 21:23 Dose: 20 unit Lisinopril (Prinivil) 5 mg PO DAILY [facility] Last Admin: 03/17/19 10:52 Dose: 5 mg Methylprednisolone Sodium Succinate (Solu-Medrol -) 40 mg IVPUSH Q8H-IV [facility] Last Admin: 03/17/19 11:01 Dose: 40 mg Montelukast Sodium (Singulair -) 10 mg PO HS [facility] Last Admin: 03/16/19 21:22 Dose: 10 mg Multivitamins/Minerals/Vitamin C (Tab-A-Vit -) 1 tab PO DAILY [facility] Last Admin: 03/17/19 10:52 Dose: 1 tab Pantoprazole Sodium (Protonix -) 40 mg PO DAILY [facility] Last Admin: 03/17/19 10:52 Dose: 40 mg Potassium Phos/Sodium Phos (Phos-Nak Packet -) 1 packet PO BID [facility] Last Admin: 03/17/19 10:52 Dose: 1 packet Thiamine HCl (Vitamin B1 -) 100 mg PO DAILY [facility] Last Admin: 03/17/19 10:53 Dose: 100 mg A/P Acute Hypercapneic Respiratory Failure Acute COPD Exacerbation r/o Pneumonia HTN DM GERD Hyperlipidemia Polysubstance Abuse - continue antibiotics - f/u cultures - can change steroids to PO prednisone 60mg daily and taper as outpt - inhaled bronchodilators - O2 to keep SpO2 >90% - DVT prophylaxis
[2019-03-17] MEDS ORDERED: INSULIN (NOVOLOG) ASPART 100 UNITS/ML 10ML VIAL SQ ONE (17:44)
[2019-03-17] MEDS ORDERED: predniSONE 20 MG TABLET (UD) PO ONE (18:52)
--- NOTE | 2019-03-17 19:00 | PN ---
Progress Note (short form) - Note Progress Note: SUBJECTIVE: SOB improving. No fever/chills. No CP/palpitations. OBJECTIVE: Afebrile, Hemodynamically Stable. SpO2 92% RA Last Vital Signs Temp Pulse Resp BP Pulse Ox 98.2 F 98 H 20 133/78 88 L 03/17/19 14:29 03/17/19 14:29 03/17/19 14:29 03/17/19 14:29 03/17/19 09:00 Heart - S1, S2, RRR Lungs - decreased air entry, wheeze improving Abdomen - Soft, non-tender. Bowel Sounds normal. Extremities - no calf tenderness. Laboratory Results - last 24 hr 03/16/19 03/16/19 03/17/19 19:51 23:28 04:19 Sodium Potassium Chloride Carbon Dioxide Anion Gap BUN Creatinine Est GFR (CKD-EPI)AfAm Est GFR (CKD-EPI)NonAf POC Glucometer 578 485 324 Random Glucose Calcium 03/17/19 03/17/19 03/17/19 08:50 10:02 11:25 Sodium 132 L Potassium 4.4 Chloride 94 L Carbon Dioxide 31 Anion Gap 7 L BUN 35.3 H Creatinine 1.1 Est GFR (CKD-EPI)AfAm 66.38 Est GFR (CKD-EPI)NonAf 57.27 POC Glucometer 545 495 Random Glucose 390 H Calcium 9.1 03/17/19 03/17/19 15:09 17:14 Sodium Potassium Chloride Carbon Dioxide Anion Gap BUN Creatinine Est GFR (CKD-EPI)AfAm Est GFR (CKD-EPI)NonAf POC Glucometer 460 476 Random Glucose Calcium Current Medications Generic Name Dose Route Start Last Admin Trade Name Freq PRN Reason Stop Dose Admin Albuterol Sulfate 1 amp 03/14/19 23:49 Ventolin 0.083% Nebulizer Soln - NEB Q1H PRN SHORT OF BREATH/WHEEZING Albuterol/Ipratropium 1 amp 03/15/19 08:00 03/17/19 15:39 Duoneb - NEB 1 amp RQID ARUN Administration Atorvastatin Calcium 20 mg 03/16/19 22:00 03/16/19 21:22 Lipitor - PO 20 mg HS ARUN Administration Budesonide/Formoterol Fumarate 2 puff 03/15/19 22:00 03/17/19 11:32 Symbicort 160/4.5mcg - IH 2 puff BID ARUN Administration Diphenhydramine HCl 50 mg 03/16/19 13:50 Benadryl - PO HS PRN INSOMNIA Enoxaparin Sodium 40 mg 03/15/19 10:00 03/17/19 10:52 Lovenox - SQ 40 mg DAILY ARUN Administration Folic Acid 1 mg 03/15/19 10:00 03/17/19 10:52 Folic Acid - PO 1 mg DAILY ARUN Administration Gabapentin 600 mg 03/15/19 06:00 03/17/19 13:07 Neurontin - PO 600 mg TID ARUN Administration Guaifenesin 5 ml 03/17/19 11:16 03/17/19 13:07 Diabetic Tussin Dm - PO 5 ml Q6H PRN Administration COUGH Ceftriaxone Sodium 1 gm/ 50 mls @ 100 mls/hr 03/15/19 10:00 03/17/19 10:52 Dextrose IVPB 100 mls/hr DAILY ARUN Administration Protocol Doxycycline Hyclate 100 mg/ 100 mls @ 100 mls/hr 03/15/19 10:00 03/17/19 10: 52 Dextrose IVPB 100 mls/hr BID ARUN Administration Insulin Aspart 1 vial 03/14/19 23:45 03/17/19 15:14 Novolog Vial Sliding Scale - SQ 12 unit Q4H ARUN Administration Protocol Insulin Detemir 20 units 03/16/19 09:49 03/16/19 21:23 Levemir Vial SQ 20 unit HS ARUN Administration Lisinopril 5 mg 03/16/19 10:00 03/17/19 10:52 Prinivil PO 5 mg DAILY ARUN Administration Montelukast Sodium 10 mg 03/15/19 22:00 03/16/19 21:22 Singulair - PO 10 mg HS ARUN Administration Multivitamins/Minerals/Vitamin C 1 tab 03/15/19 10:00 03/17/19 10:52 Tab-A-Vit - PO 1 tab DAILY ARUN Administration Pantoprazole Sodium 40 mg 03/15/19 17:15 03/17/19 10:52 Protonix - PO 40 mg DAILY ARUN Administration Potassium Phos/Sodium Phos 1 packet 03/15/19 22:00 03/17/19 10:52 Phos-Nak Packet - PO 1 packet BID ARUN Administration Prednisone 60 mg 03/17/19 18:52 Deltasone - PO 03/17/19 18:53 ONCE ONE Prednisone 40 mg 03/18/19 10:00 Deltasone - PO DAILY [facility] Thiamine HCl 100 mg 03/15/19 10:00 03/17/19 10:53 Vitamin B1 - PO 100 mg DAILY [facility] Administration Home Medications Medication Instructions Recorded Albuterol Sulfate Inhaler - 2 puff PO PRN PRN 03/13/19 [Ventolin HFA Inhaler -] Aspirin 81 mg PO DAILY 03/13/19 Atorvastatin Calcium [Lipitor] 20 mg PO DAILY 03/13/19 Cyclobenzaprine HCl [Flexeril 10 5 mg PO DAILY 03/13/19 mg] Famotidine [Pepcid -] 20 mg PO DAILY 03/13/19 Gabapentin [Neurontin] 600 mg PO TID 03/13/19 Insulin Sliding Scale [Novolog 25 units SQ TID 03/13/19 Vial Sliding Scale -] Lisinopril 5 mg PO DAILY 03/13/19 Ipratropium 0.02% Nebulizer 1 neb PO BID 03/15/19 [Atrovent 0.02% Nebulizer -] Montelukast Na [Singulair -] 1 tab PO DAILY 03/15/19 Nicotine [Nicotine Patch] 1 patch TD DAILY 03/15/19 Omeprazole 40 mg PO DAILY 03/15/19 ASSESSMENT/PLAN 53 year old female with history of COPD, Asthma, DM 2, GERD, HTN, HLD, Peripheral Neuropathy, Polysubstance Abuse (Alcohol, cocaine), presents from [facility] with increasing SOB and productive cough. 1. Acute Hypercapneic Respiratory Failure secondary to Acute COPD Exacerbation and CAP CXR - R basal infiltrate Echo - normal EF, impaired relaxation. Off BiPAP, on O2 via NC. Continue DuoNeb/Ceftriaxone/Doxycycline/O2 PRN. Transition IV Solumedrol to PO Prednisone Urine for Legionella Ag negative Monitor respiratory status, likely discharge tomorrow if stable. 2. DM 2 - uncontrolled, A1c 12. BGMs > 450 consistently sec to IV solumedrol and non-compliance with diet. Levemir/Novolog sliding scale intensified. Levemir dose increased to 30 units due to uncontrolled BGMs. IV Solumedrol changed to PO prednisone. 3. Polysubstance Abuse (cocaine, alcohol) Presented from [facility] with Acute Alcohol Withdrawal - completed Day 4 Librium withdrawal protocol Continue MVI, Thiamine, Folate. 4. HTN - Continue Lisinopril. 5. HLD - Continue Statin. 6. GERD - Continue PPI DVT Px - Lovenox SQ Visit type - Emergency Visit Emergency Visit: Yes ED Registration Date: 03/14/19 Care time: The patient presented to the Emergency Department on the above date and was hospitalized for further evaluation of their emergent condition. - New Patient This patient is new to me today: No - Critical Care Critical Care patient: No - Discharge Referral Referred to [facility] Med P.C.: No
[2019-03-17] MEDS: MONTELUKAST NA 10 MG TABLET PO SCH (21:55)
[2019-03-17] MEDS: INSULIN (LEVEMIR) 100 UNITS/ML UNITS SQ SCH (21:56)
[2019-03-17] MEDS: ATORVASTATIN CA 20 MG TABLET (FP) PO SCH (21:56)
[2019-03-18] MEDS: INSULIN SLIDING SCALE (NOVOLOG) 1 VIAL SQ SCH ×5 (00:02→11:45)
[2019-03-18] MEDS ORDERED: chlordiazePOXIDE HCL 10 MG CAPSULE PO ONE (05:00)
[2019-03-18] MEDS: GABAPENTIN 300 MG CAPSULE PO SCH (05:59)
[2019-03-18] MEDS: ALBUTEROL SO4 2.5/IPRATROPIUM 0.5 INH SOL 3 ML VIAL.NEB. NEB SCH (07:35)
[2019-03-18] MEDS ORDERED: INSULIN (LEVEMIR) 100 UNITS/ML UNITS SQ ONE (08:14)
[2019-03-18] MEDS ORDERED: DOXYCYCLINE HYCLATE 100 MG VIAL ONE (08:52)
[2019-03-18] MEDS ORDERED: DEXTROSE 5%-WATER 100 ML IVPB ONE (08:52)
[2019-03-18] MEDS ORDERED: cefTRIAXone SODIUM 1 GM VIAL ONE (08:53)
[2019-03-18] MEDS ORDERED: DEXTROSE 5%-WATER - 50 ML IVPB ONE (08:54)
[2019-03-18] MEDS: MULTIVITAMINS (DAILY MVI) TABLET (FP) PO SCH (09:06)
[2019-03-18] MEDS: LISINOPRIL 5 MG TABLET (FP) PO SCH (09:06)
[2019-03-18] MEDS: PANTOPRAZOLE 40 MG TABLET PO SCH (09:06)
[2019-03-18] MEDS: FOLIC ACID 1 MG TABLET (FP) PO SCH (09:06)
[2019-03-18] MEDS: THIAMINE HCL 100 MG TABLET (FP) PO SCH (09:07)
[2019-03-18] MEDS: ENOXAPARIN NA (PORCINE) 40 MG/0.4 ML DISP.SYRIN SQ SCH (09:07)
[2019-03-18] MEDS: CEFTRIAXONE 1 GM in DEXTROSE 5%-WATER - 50 ML IVPB SCH (09:07)
[2019-03-18] MEDS: NAPH,MB-DB/K PH,MBDB POWDER PACKET PO SCH (09:07)
[2019-03-18] MEDS: DOXYCYCLINE INJECTION 100 MG in DEXTROSE 5%-WATER 100 ML IVPB SCH (09:07)
[2019-03-18] MEDS: BUDESONIDE/FORMETEROL FUMARATE 160/4.5 mcg INHALER IH SCH (09:08)
[2019-03-18 09:50] VITALS: PULSE 102
[2019-03-18] MEDS ORDERED: predniSONE 20 MG TABLET (UD) PO SCH (10:00)
[2019-03-18 10:07] VITALS: BP 134/91; TEMP 98
[2019-03-18] MEDS ORDERED: CEFPODOXIME PROXETIL 100 MG TABLET PO SCH (10:15)
--- NOTE | 2019-03-18 10:35 | PN ---
Progress Note (short form) - Note Progress Note: States breathing is overall improved. No acute events overnight. Intake & Output 03/15/19 03/16/19 03/17/19 03/18/19 23:59 23:59 23:59 23:59 Intake Total 2700 2030 2972 100 Output Total 200 Balance 2700 1830 2972 100 Weight 204 lb 208 lb 206 lb 8 oz 207 lb Last Vital Signs Temp Pulse Resp BP Pulse Ox 98.0 F 102 H 18 134/91 97 03/18/19 08:30 03/18/19 09:48 03/18/19 08:30 03/18/19 08:30 03/18/19 09:48 Active Medications Albuterol Sulfate (Ventolin 0.083% Nebulizer Soln -) 1 amp NEB Q1H PRN PRN Reason: SHORT OF BREATH/WHEEZING Last Admin: 03/18/19 03:02 Dose: 1 amp Albuterol/Ipratropium (Duoneb -) 1 amp NEB RQID [facility] Last Admin: 03/18/19 07:35 Dose: 1 amp Atorvastatin Calcium (Lipitor -) 20 mg PO HS [facility] Last Admin: 03/17/19 21:56 Dose: 20 mg Budesonide/Formoterol Fumarate (Symbicort 160/4.5mcg -) 2 puff IH BID [facility] Last Admin: 03/18/19 09:08 Dose: 2 puff Cefpodoxime Proxetil (Vantin (Nf) -) 100 mg PO DAILY [facility] Diphenhydramine HCl (Benadryl -) 50 mg PO HS PRN PRN Reason: INSOMNIA Doxycycline Hyclate (Vibramycin -) 100 mg PO BID@1000,1800 [facility] Enoxaparin Sodium (Lovenox -) 40 mg SQ DAILY [facility] Last Admin: 03/18/19 09:07 Dose: 40 mg Folic Acid (Folic Acid -) 1 mg PO DAILY [facility] Last Admin: 03/18/19 09:06 Dose: 1 mg Gabapentin (Neurontin -) 600 mg PO TID [facility] Last Admin: 03/18/19 05:59 Dose: 600 mg Guaifenesin (Diabetic Tussin Dm -) 5 ml PO Q6H PRN PRN Reason: COUGH Last Admin: 03/17/19 13:07 Dose: 5 ml Insulin Aspart (Novolog Vial Sliding Scale -) 1 vial SQ Q4H [facility]; Protocol Last Admin: 03/18/19 10:08 Dose: 10 unit Insulin Detemir (Levemir Vial) 20 units SQ [facility] Last Admin: 03/17/19 21:56 Dose: 20 unit Lisinopril (Prinivil) 5 mg PO DAILY [facility] Last Admin: 03/18/19 09:06 Dose: 5 mg Montelukast Sodium (Singulair -) 10 mg PO HS [facility] Last Admin: 03/17/19 21:55 Dose: 10 mg Multivitamins/Minerals/Vitamin C (Tab-A-Vit -) 1 tab PO DAILY [facility] Last Admin: 03/18/19 09:06 Dose: 1 tab Pantoprazole Sodium (Protonix -) 40 mg PO DAILY [facility] Last Admin: 03/18/19 09:06 Dose: 40 mg Potassium Phos/Sodium Phos (Phos-Nak Packet -) 1 packet PO BID [facility] Last Admin: 03/18/19 09:07 Dose: 1 packet Prednisone (Deltasone -) 40 mg PO DAILY [facility] Last Admin: 03/18/19 09:06 Dose: 40 mg Thiamine HCl (Vitamin B1 -) 100 mg PO DAILY [facility] Last Admin: 03/18/19 09:07 Dose: 100 mg Gen: NAD at rest Heart: RRR Lung: few scattered rhonchi, No wheezes Abd: soft, nontender Ext: no edema Laboratory Results - last 24 hr 03/17/19 03/17/19 03/17/19 08:50 11:25 15:09 Sodium 132 L Potassium 4.4 Chloride 94 L Carbon Dioxide 31 Anion Gap 7 L BUN 35.3 H Creatinine 1.1 Est GFR (CKD-EPI)AfAm 66.38 Est GFR (CKD-EPI)NonAf 57.27 POC Glucometer 495 460 Random Glucose 390 H Calcium 9.1 03/17/19 03/17/19 03/17/19 17:14 18:30 20:02 Sodium Potassium Chloride Carbon Dioxide Anion Gap BUN Creatinine Est GFR (CKD-EPI)AfAm Est GFR (CKD-EPI)NonAf POC Glucometer 476 483 542 Random Glucose Calcium 03/17/19 03/18/19 03/18/19 23:59 03:23 07:35 Sodium Potassium Chloride Carbon Dioxide Anion Gap BUN Creatinine Est GFR (CKD-EPI)AfAm Est GFR (CKD-EPI)NonAf POC Glucometer 418 374 448 Random Glucose Calcium 03/18/19 10:01 Sodium Potassium Chloride Carbon Dioxide Anion Gap BUN Creatinine Est GFR (CKD-EPI)AfAm Est GFR (CKD-EPI)NonAf POC Glucometer 355 Random Glucose Calcium A/P Acute Hypercapneic Respiratory Failure Acute COPD Exacerbation r/o Pneumonia HTN DM GERD Hyperlipidemia Polysubstance Abuse - Prednisone taper - Symbicort BID - Albuterol PRN - No smoking - DC Home Dr Aguayo
[2019-03-18] MEDS ORDERED: DOXYCYCLINE HYCLATE 100 MG CAPSULE PO ONE ×2 (11:00→11:30)
[2019-03-18] MEDS ORDERED: DOXYCYCLINE HYCLATE 100 MG CAPSULE PO SCH ×2 (11:15→18:00)
[2019-03-18] MEDS ORDERED: CEFPODOXIME PROXETIL 200 MG TABLET [NF] PO SCH (11:15)
[2019-03-18] MEDS ORDERED: PT OWN MED DRAWER 7, Y5N ONE (12:33)
--- NOTE | 2019-03-18 12:55 | PN ---
Teaching Attending Note Name of Resident: Jeremías Silvestre ATTENDING PHYSICIAN STATEMENT I saw and evaluated the patient. I reviewed the resident's note and discussed the case with the resident. I agree with the resident's findings and plan as documented. SUBJECTIVE: SOB improved. No fever/chills. No CP/palpitations. OBJECTIVE: Afebrile, Hemodynamically Stable. SpO2 95% RA Last Vital Signs Temp Pulse Resp BP Pulse Ox 98.0 F 102 H 18 134/91 97 03/18/19 08:30 03/18/19 09:48 03/18/19 08:30 03/18/19 08:30 03/18/19 09:48 Heart - S1, S2, RRR Lungs - Air entry improved bilaterally, no wheeze. Abdomen - Soft, non-tender. Bowel Sounds normal. Extremities - no calf tenderness. All labs and imaging reviewed Discharge Medications Medication Instructions Recorded Albuterol Sulfate Inhaler - 2 puff PO PRN PRN 03/13/19 [Ventolin HFA Inhaler -] Aspirin 81 mg PO DAILY 03/13/19 Atorvastatin Calcium [Lipitor] 20 mg PO DAILY 03/13/19 Cyclobenzaprine HCl [Flexeril 10 5 mg PO DAILY 03/13/19 mg] Famotidine [Pepcid -] 20 mg PO DAILY 03/13/19 Gabapentin [Neurontin] 600 mg PO TID 03/13/19 Insulin Sliding Scale [Novolog 25 units SQ TID 03/13/19 Vial Sliding Scale -] Lisinopril 5 mg PO DAILY 03/13/19 Montelukast Na [Singulair -] 1 tab PO DAILY 03/15/19 Nicotine [Nicotine Patch] 1 patch TD DAILY 03/15/19 Omeprazole 40 mg PO DAILY 03/15/19 Albuterol 2.5/Ipratropium 0.5 1 amp NEB TID #1 amp 03/18/19 [Duoneb -] Budesonide/Formeterol Fumarate 1 inh PO BID #1 cannister 03/18/19 [SYMBICORT 80/4.5mcg -] Cefpodoxime Proxetil [Vantin -] 200 mg PO BID #2 tablet 03/18/19 Doxycycline Injection [Vibramycin 100 mg IVPB BID #2 vial 03/18/19 Injection -] Folic Acid - 1 mg PO DAILY tablet 03/18/19 Multivitamin [Multiple Vitamins] 1 each PO DAILY #30 tablet 03/18/19 Nebulizer [Aeroeclipse II] 1 each MC TID PRN 1 Days #1 each 03/18/19 Prednisone 40 mg PO DAILY 2 Days #8 tablet 03/18/19 Thiamine HCl [Vitamin B1 -] 100 mg PO DAILY #30 tablet 03/18/19 ASSESSMENT/PLAN 53 year old female with history of COPD, Asthma, DM 2, GERD, HTN, HLD, Peripheral Neuropathy, Polysubstance Abuse (Alcohol, cocaine), presents from [facility] with increasing SOB and productive cough. 1. Acute Hypercapneic Respiratory Failure secondary to Acute COPD Exacerbation and CAP CXR - R basal infiltrate Echo - normal EF, impaired relaxation. Off BiPAP, weaned off supplemental O2 (SpO2 95% on RA) Continue DuoNeb/Vantin/Doxycycline/Prednisone for total 5 days. Symbicort INH as per Pulm. Medically stable for discharge with Pulm out-patient follow up. 2. DM 2 - uncontrolled, A1c 12. BGMs > 450 consistently/difficult to control sec to IV solumedrol and non-compliance with diet. Levemir/Novolog sliding scale suggested but she wants to continue her current home regimen TIDAC until out-patient appt with [facility] - referral given. 3. Polysubstance Abuse (cocaine, alcohol) Presented from [facility] with Acute Alcohol Withdrawal - completed Librium withdrawal protocol Continue MVI, Thiamine, Folate. Counselled - agrees to participate in out-patient alcohol cessation support programs. 4. HTN - Continue Lisinopril. 5. HLD - Continue Statin. 6. GERD - Continue PPI Medically optimized for discharge with Pulm, Endocrinology, and PCP follow up.
--- NOTE | 2019-03-18 13:13 | DS ---
Physical Exam: SUBJECTIVE: Patient seen and examined at bedside this AM. Pt very anxious to leave. She has improved air entry and no longer is wheezing. Afebrile, no chills , no sob while ambulating or at rest. Glucose improved to less than 400. OBJECTIVE: Vital Signs Period Temp Pulse Resp BP Sys/Singh Pulse Ox Last 24 Hr 97.6 F-98.2 F 91-108 18-20 123-135/66-91 88-98 PHYSICAL EXAM GENERAL: The patient is awake, alert, and fully oriented, in no acute distress. LUNGS: Breath sounds slightly reduced, wheezing less, improved HEART: Regular rate and rhythm, S1, S2 without murmur, rub or gallop. ABDOMEN: Soft, nontender, nondistended EXTREMITIES: 2+ pulses, warm, well-perfused, no edema. NEUROLOGICAL: Cranial nerves II through XII grossly intact. Normal speech, gait not observed. PSYCH: Normal mood, normal affect. SKIN: Warm, dry, no rashes or lesions noted. LABS Laboratory Results - last 24 hr 03/17/19 03/17/19 03/17/19 15:09 17:14 18:30 POC Glucometer 460 476 483 03/17/19 03/17/19 03/18/19 20:02 23:59 03:23 POC Glucometer 542 418 374 03/18/19 03/18/19 07:35 10:01 POC Glucometer 448 355 HOSPITAL COURSE: Date of Admission:03/14/19 CXR - R basal infiltrate Echo - normal EF, impaired relaxation. Renal sono- negative for any hydro. This patient presented from [facility] with acute alcohol withdrawal (uses crystal meth, co admitted for Acute hypercapneic RF 2/2 Acute COPD exacerbation/ CAP. Pt was placed on Solumedrol 60q6, ceftriaxone, and doxy (prolonged QTc). Pt was seen by pulmonary who would like her to follow up in 1 week to have outpatient pft's and optimize medical mgmt. Pt also was treated for hyperglycemia likely worsened due to noncompliant diet obtaining outside food as well as steroids use. She had a glucose of < 400 upon d/c and was told to follow up with Dr. Monsalve for optimization of her DM management. Pt also completed librium protocol for her alcohol withdrawal. No signs of withdrawal at this time. Pt afebrile and asymptomatic today and thus stable enough for discharge. She was sent home on 40mg PO prednisone daily for two more days as well as PO doxy and vantin, for one more day (completion of 5 days of abx), albuterol neb, duonebs, and symbicort INH as per pulm. She was told to follow up with PCP at the [facility] clinic in 1 week. Pt told to take thiamine 100mg daily for alcohol abuse hx. Pt counseled on harmful effects of polysubstance abuse and told to return to the ED if she had signs of withdrawal. Pt instructed to continue all her other meds as prescribed. Date of Discharge: 03/18/19 Minutes to complete discharge: 35 Discharge Summary Problems reviewed: Yes Reason For Visit: RESPIRATORY DISTRESS,ACUTE EXACERBATION OF COPD Condition: Stable - Instructions Diet, Activity, Other Instructions: You were admitted for respiratory distress secondary to COPD exacerbation/ Pneumonia/Acute alcohol withdrawal/high blood sugar. You were treated with Nebulizers, steroids, and antibiotics with improvement in your breathing. Please continue Prednisone and antibiotics below as prescribed with Pulmonary follow up as out-patient. Prescriptions were sent to your pharmacy including Nebulizer Device and Symbicort INHALER as advised by Technical Inspector. You successfully completed alcohol detox protocol with Librium. You were counselled regarding the harmful effects of alcohol use and the importance of out-patient support programs. You were consistently found to have high blood sugar during your stay. You were counselled extensively regarding diet and lifestyle modification. Your A1C ( measure of Diabetes) was elevated at 12. At this time, you declined modification of your home diabetic regimen. You will be referred to an [facility] on discharge for further management and control of your diabetes. Medications to continue taking after you leave here: Doxycycline 100 mg by mouth twice daily for one more day. Vantin 200mg by mouth twice daily for one more day after you leave here. Albuterol nebulizer 0.083% 1 amp per day as needed for shortness of breath or wheezing. Duonebulizer (ipratroprium bromide/albuterol) inhaler three times daily as needed for wheezing or shortness of breath Prednisone 10mg X 4 pills = 40mg by mouth once daily for 2 more days (ending 03/20 ) Thiamine (Vitamin B1) 100mg by mouth one pill daily Symbicort INhaler 2 puffs twice daily. FOLLOW UPS: Endocrinology - Dr. Hunt Pulmonary - Dr. Voss Primary Care Provider - Dr. Robertson Referrals: Carl Robertson MD [Staff Physician] - 1 Week Teo Voss MD [Staff Physician] - 1 Week Velasquez Hunt MD [Staff Physician] - 1 Week Disposition: HOME - Home Medications Comprehensive Discharge Medication List: Ambulatory Orders Albuterol Sulfate Inhaler - [Ventolin HFA Inhaler -] 2 puff PO PRN PRN 03/13/19 Aspirin 81 mg PO DAILY 03/13/19 Atorvastatin Calcium [Lipitor] 20 mg PO DAILY 03/13/19 Cyclobenzaprine HCl [Flexeril 10 mg] 5 mg PO DAILY 03/13/19 Famotidine [Pepcid -] 20 mg PO DAILY 03/13/19 Gabapentin [Neurontin] 600 mg PO TID 03/13/19 Insulin Sliding Scale [Novolog Vial Sliding Scale -] 25 units SQ TID 03/13/19 Lisinopril 5 mg PO DAILY 03/13/19 Montelukast Na [Singulair -] 1 tab PO DAILY 03/15/19 Nicotine [Nicotine Patch] 1 patch TD DAILY 03/15/19 Omeprazole 40 mg PO DAILY 03/15/19 Albuterol 2.5/Ipratropium 0.5 [Duoneb -] 1 amp NEB TID #1 amp 03/18/19 Budesonide/Formeterol Fumarate [SYMBICORT 80/4.5mcg -] 1 inh PO BID #1 cannister 03/18/19 Cefpodoxime Proxetil [Vantin -] 200 mg PO BID #2 tablet 03/18/19 Doxycycline Injection [Vibramycin Injection -] 100 mg IVPB BID #2 vial 03/18/19 Folic Acid - 1 mg PO DAILY tablet 03/18/19 Multivitamin [Multiple Vitamins] 1 each PO DAILY #30 tablet 03/18/19 Nebulizer [Aeroeclipse II] 1 each MC TID PRN 1 Days #1 each 03/18/19 Prednisone 40 mg PO DAILY 2 Days #8 tablet 03/18/19 Thiamine HCl [Vitamin B1 -] 100 mg PO DAILY #30 tablet 03/18/19 This patient is new to me today: No Emergency Visit: Yes ED Registration Date: 03/14/19 Care time: The patient presented to the Emergency Department on the above date and was hospitalized for further evaluation of their emergent condition. Critical Care patient: No - Discharge Referral [facility]erred to [facility] No ATTENDING PHYSICIAN STATEMENT I saw and evaluated the patient. I reviewed the resident's note and discussed the case with the resident. I agree with the resident's findings and plan as documented. SUBJECTIVE: OBJECTIVE: ASSESSMENT AND PLAN:
== END 2019-03-18 13:04 | disposition home or self-care (01) | DRG 193 ==
LOC: JER 18:16 → JERBED 20:53 → J6S 03-15 02:38
PROVIDERS: ADMIT Internal Medicine
DX: J18.9 Pneumonia, unspecified organism (principal); J96.02 Acute respiratory failure with hypercapnia; J44.1 Chronic obstructive pulmonary disease with (acute) exacerbation; N17.9 Acute kidney failure, unspecified; J44.0 Chronic obstructive pulmonary disease with (acute) lower respiratory infection; K21.9 Gastro-esophageal reflux disease without esophagitis; Z87.891 Personal history of nicotine dependence; I10 Essential (primary) hypertension; F14.10 Cocaine abuse, uncomplicated; F10.10 Alcohol abuse, uncomplicated; E88.09 Other disorders of plasma-protein metabolism, not elsewhere classified; E11.65 Type 2 diabetes mellitus with hyperglycemia; E66.9 Obesity, unspecified; E11.40 Type 2 diabetes mellitus with diabetic neuropathy, unspecified; Z79.4 Long term (current) use of insulin; E83.39 Other disorders of phosphorus metabolism; L29.2 Pruritus vulvae; Z68.34 Body mass index [BMI] 34.0-34.9, adult
CPT/HCPCS: 36415; 36600; 71045-TC-FY; 76775-TC; 76856-TC; 80048; 80051; 80053; 80307; 81003; 82375; 82565; 82607; 82746; 82803; 82962; 83036; 83050; 83735; 84100; 84439; 84443; 84484; 85025; 85027; 87804; 87899; 93005; 93010; 93306-TC; 94150; 94640; 94660; 94761; 97116-GP; 97161-GP; 99285-25; J7030